=== PATIENT | female | born 1945 | race Caucasian/White ===

== ENCOUNTER 2020-12-18 12:42 | Outpatient (REF) | payer MEDICARE, OTHER, SELFPAY ==
[2020-12-18 13:48] LABS: Blood Urea Nitrogen 14 mg/dL (9-16); Estimated Glomerular Filt Rate > 60
== END 2020-12-18 12:43 | disposition home or self-care (01) ==
LOC: HO.LAB 12:42
PROVIDERS: Psychiatry & Neurology Neurology; PCP Internal Medicine; Visit Provider Internal Medicine
DX: I67.89 Other cerebrovascular disease (principal)
CPT/HCPCS: 36415; 82565; 84520

== ENCOUNTER → 2021-01-22 14:50 | Outpatient (REF) | payer MEDICARE, OTHER, SELFPAY | LOC: HO.SL 14:50 | PROVIDERS: PCP Internal Medicine; Visit Provider Psychiatry & Neurology Neurology | DX: Z13.89 Encounter for screening for other disorder (principal) ==

== ENCOUNTER 2021-02-05 10:10 | Outpatient (REF) | payer MEDICARE, OTHER, SELFPAY ==
[2021-02-05 10:51] LABS: Blood Urea Nitrogen 13 mg/dL (9-16); Estimated Glomerular Filt Rate > 60
== END 2021-02-05 10:11 | disposition home or self-care (01) ==
LOC: HO.LAB 10:10
PROVIDERS: PCP Internal Medicine; Visit Provider Psychiatry & Neurology Neurology
DX: Z01.812 Encounter for preprocedural laboratory examination (principal)
CPT/HCPCS: 36415; 82565; 84520

== ENCOUNTER 2021-02-23 07:32 | Outpatient (REF) | payer MEDICARE, OTHER, SELFPAY ==
--- NOTE | ~2021-02-23 | CT_ITS ---
EXAMINATION: CT ANGIOGRAM NECK WITH CONTRAST CT ANGIOGRAM BRAIN WITH CONTRAST CLINICAL INFORMATION: Cerebral microvascular disease. COMPARISON: None. TECHNIQUE: Test bolus sequences followed by intravenous administration 70 mL of Omnipaque 350. Helical imaging was performed in the axial plane from the thoracic inlet to the skull vertex. Delayed postcontrast imaging of the head was also performed. The data was processed at the certified cytotechnologist workstation for generation of MIP sequences. Angled MIPs and volume rendered reformatted images were also generated at an offline 3D workstation. Stenoses are assessed in accordance with NASCET criteria unless otherwise indicated. This CT examination was performed using dose optimization techniques as appropriate, variously including the following: *Automated exposure control *Adjustment of mA and/or kV according to patient size (this includes techniques or standardized protocols for targeted exams where dose is matched to indication/reason for exam; i.e. extremities or head) *Use of iterative reconstruction technique DLP: 2361 mGy-cm FINDINGS: Head CT: There is no intracranial hemorrhage, large acute infarction, or parenchymal mass lesion. A 9 mm densely calcified lesion along the high left parietal convexity most likely represents a calcified meningioma. Prominent dural ossification is seen along the high right frontal convexity. The ventricles are normal in size and configuration without evidence of hydrocephalus. No abnormal enhancement is seen. The visualized paranasal sinuses and mastoid air cells are clear. There is a prominent lipoma along the left frontotemporal scalp. Neck CTA: Ureter arch is patent. The great vessel origins are patent. The bilateral common carotid arteries are patent. No carotid bifurcation stenosis is seen. Both vertebral arteries are patent without significant stenosis. Head CTA: The intradural vertebral arteries and basilar artery are patent. The bilateral intracranial ICAs, ACAs, and MCAs are patent and demonstrate symmetric collaterals. No aneurysm is seen. Non-vascular findings: The cervical soft tissues are within normal limits. Multilevel degenerative changes are seen within the spine. CT/CT angio head neck IMPRESSION: CT head: No intracranial hemorrhage or large acute infarction. 9 mm densely calcified lesion along the high left parietal convexity most likely represents a small meningioma. CTA neck: No hemodynamically significant stenosis in the major arteries of the neck. CTA head: No large vessel occlusion or significant stenosis within the intracranial circulation.
[2021-02-23] MEDS: iohexoL 350 MG/ML 100 ML INFUS..BTL 70 ML IV (08:35)
== END 2021-02-23 07:33 | disposition home or self-care (01) ==
LOC: HO.CT 07:32
PROVIDERS: PCP Internal Medicine; Visit Provider Psychiatry & Neurology Neurology
DX: I67.89 Other cerebrovascular disease (principal)
CPT/HCPCS: 70496; 70498; Q9967

== ENCOUNTER → 2021-03-01 14:57 | Outpatient (REF) | payer MEDICARE, OTHER, SELFPAY | LOC: HO.SL 14:57 | PROVIDERS: PCP Internal Medicine; Visit Provider Internal Medicine | DX: G47.33 Obstructive sleep apnea (adult) (pediatric) (principal) | CPT/HCPCS: 95806 ==

== ENCOUNTER 2024-09-03 09:31 | Outpatient (REF) | payer MEDICARE, OTHER, SELFPAY ==
--- OUTSIDE RECORDS SUMMARY | 2024-09-03 09:44 | XMS_ITS | Encounter Summary ---
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 Name Role Phone Mayito Fleming MD Primary Care Prov ider Reason for Visit * Reason Onset Date Comments Nurse Triage 08/11/2024 Encounter Details Date Type Department Care Team (Late st Contact Info) Description 08/11/2024 Telephone [facility] [address] [place] [address] Mayito Fleming MD [address] [place] [address] Nurse Triage Social History Tobacco Use Types Packs/Day Years Used Date Smoking Tobacco: Never Smokeless Tobacco: Never Alcohol Use Standard Drinks/Week Comments Never 0 (1 standard drink = 0.6 oz pur e alcohol) Depression Answer Date Recorded Patient Health Questionnaire-9 Score 0 06/29/2024 Patient Health Questionnaire-9 Score 0 06/29/2024 Last PHQ-9: Questionnaire Data Not on file 0 06/29/2024 Housing Stability Answer Date Recorded What is your housing situation today? I have izabel mccoy 06/29/[address] you li ve. Do you have problems with any of the following? None of the above 06/29/2024 Food Insecurity Answer Date Recorded Within the past 12 months, y ou worried that your food would run out before you got money to buy more: Never True 06/29/2024 Within the past 12 months,th e food you bought just didn't last and you didn't have enough money to get more: Never True Transportation Answer Date Recorded In the past 12 months, has l ack of transportation kept you from medical appts, meetings, work or from getting things needed for daily living? No 06/29/2024 Utilities Answer Date Recorded In the past 12 months, has t he electric, gas, oil or water company threatened to shut off services in your home? No 06/29/2024 Depression Answer Date Recorded Patient Health Questionnaire-2 Score 0 06/29/2024 Internet Access Answer Date Recorded Internet Access Q1 Yes 06/29/2024 Internet Access Q2 Not on file 06/29/2024 Comments Unknown Sex and Gender Information Value Date Recorded Sex Assigned at Female 04/15/2024 9:20 AM EST Legal Sex Female 9:18 AM EST Gender Identity Female 04/15/2024 9:20 AM EST Sexual Orientation Straight 04/15/2024 9: 20 AM EST documented as of this encounter Miscellaneous Notes * Telephone Encounter - Marge Hicks RN - 08/11/2024 5:00 PM EDT Triage call Pt reports left leg is very painful below the knee. Pt does ambulate with walker but, continues to have a limp. Pt reports knee has slight swelling today but, denies redness or warmth. Pthas started to take tylenol arthritis pain relief which has been helpful. Advised to try ice or heat to the area to see if either helps to relieve the pain too. Pt agrees. ASK apt with Dr. Packer 08/17/24 @ 345pm. Pt agrees with this disposition and if pain is better before the apt will call to cancel. Pt insurance is verified as active prior to booking. Protocol Used: Leg Pain (Adult) Protocol-Based Disposition: See in Office or Video Visit within 2 Weeks Video visit not offered Positive Triage Question: * Mild pain (e.g., does not interfere with normal activities) and present > 7 days * All higher-acuity triage questions were negative Care Advice Discussed: * Reassurance and Education - Leg Pain * Pain Medicines * Pain Medicines - Extra Notes and Warnings * Reasons To Call Back - Moderate pain (such as limping) lasts more than 3 days - Mild pain lasts more than 7 days - Signs of infection occur (such as spreading redness, warmth, fever) - You become worse * Use a Cold Pack for Pain * Use Heat After 48 Hours for Pain * Telephone Encounter - Arpan Moore - 08/11/2024 4:09 PM EDT Symptom: Leg Pain - Not From Injury Outcome: Schedule an urgent appointment (within 1 hour) or talk to a nurse or provider soon Reason: Trouble walking The caller accepted this outcome. Pt okay guyanese speaking documented in this encounter Plan of Treatment Upcoming Encounters Date Type Department Care Team (Late st Contact Info) Description 09/30/2024 3:45 PM EDT Office Visit [facility] [address] [place] [address] Mayito Fleming MD [address] [place] [address] documented as of this encounter Visit Diagnoses Not on filedocumented in this encounter Additional Health Concerns Assessment Noted Time PHQ-9 Depression Total Score: 0 06/29/19 1:48 PM EST documented as of this encounter Care Teams Hot Dip Plater Relationship Specialty Start Date End Date Mayito Fleming MD [address] [place] [address] PCP - General Internal Medicine 06/29/24 documented as of this encounter
--- OUTSIDE RECORDS SUMMARY | 2024-09-03 09:44 | XMS_ITS | Clinical Summary ---
Author Organization Patient Business Ser [facility] Address [address] [place] [address] Care Team Providers Care Torpedo Specialist Name Role Phone Mayito Fleming Primary Care Provide r Allergies Active Allergy Reactions Criticality Noted Date Comments Shellfish Containing Products Rash High 2022 Jspojbl-Ctd-Fzh Reductase Inhibitors Pain,Muscular Issues High 08/24/2018 Medications inhalat.spacin g dev,large mask spacer Use with inhaler 2 times/day for 30 days. 01/18/20 23 Active polyethylene glycol (MIRALAX) 17 gram packet Take 17 g by mouth 1 (one) time each day. 06/20/19 23 Active acetaminophen (TYLENOL) 500 mg tablet Take 1 tablet (500 mg total) by mouth every 6 (six) hours if needed. 08/04/19 24 Active albuterol HFA (PROAIR HFA ; PROVENTIL HFA ; VENTOLIN HFA) 90 mcg/actuation inhaler Inhale 2 puffs by mouth every 4 (four) hours if needed for shortness of breath or wheezing. 09/22/19 24 Active alclomethasone (ACLOVATE) 0.05 % ointment 04/15/20 23 Active aspirin 81 mg EC tablet Take 1 tablet (81 mg total) by mouth 1 (one) time each day. Active budesonide-for moteroL (SYMBICORT) 160-4.5 mcg/actuation inhaler Inhale 2 puffs by mouth 2 (two) times a day. 09/22/19 24 Active colchicine (COLCRYS) 0.6 mg tablet Take 1 tablet (0.6 mg total) by mouth 2 (two) times a day. 12/27/19 24 Active cyanocobalamin (VITAMIN B-12) 1,000 mcg tablet Take 1 tablet (1,000 mcg total) by mouth 1 (one) time each day. Active diclofenac (VOLTAREN) 1 % topical gel Apply 1 g topically 3 (three) times a day if needed. 08/21/19 24 Active docusate sodium (COLACE) 100 mg capsule Take 1 capsule (100 mg total) by mouth 2 (two) times a day. Active famotidine (PEPCID) 40 mg tablet Take 1 tablet (40 mg total) by mouth 2 (two) times a day. 08/21/19 24 Active fenofibrate (LOFIBRA) 160 mg tablet Take 1 tablet (160 mg total) by mouth 1 (one) time each day. Active Allergy Relief, fexofenadine, 180 mg tablet Take 1 tablet (180 mg total) by mouth 1 (one) time each day. 08/04/19 24 Active Advair HFA 230-21 mcg/actuation inhaler Inhale 1 puff by mouth 2 (two) times a day. Active guaiFENesin (MUCINEX) 600 mg 12 hr tablet Take 1 tablet (600 mg total) by mouth 2 (two) times a day if needed. 08/13/19 24 Active ibuprofen (ADVIL,MOTRIN) 800 mg tablet Take 1 tablet (800 mg total) by mouth every 8 (eight) hours if needed for mild pain, moderate pain, fever - temperature GREATER than 38 C (100.4 F) or headaches. 08/04/19 24 Active metroNIDAZOLE (METROCREAM) 0.75 % cream Apply topically 2 (two) times a day. 02/27/20 24 Active omeprazole (PriLOSEC) [address] capsule Take 1 capsule (40 mg total) by mouth 1 (one) time each day. Active oseltamivir (TAMIFLU) 75 mg capsule Take 1 capsule (75 mg total) by mouth 2 (two) times a day. for 5 days 08/04/19 24 Active pantoprazole (PROTONIX) 40 mg EC tablet Take 1 tablet (40 mg total) by mouth 1 (one) time each day. 06/25/19 24 Active senna 8.6 mg tablet Take 1 tablet (8.6 mg total) by mouth 1 (one) time each day. Active lisinopril (PRINIVIL,ZEST RIL) 40 mg tablet Take 1 tablet (40 mg total) by mouth 1 (one) time each day. 30 each 5 05/11/20 24 025 Active Vitamin D3 50 mcg (2,000 unit) tablet Take 1 tablet (2,000 Units total) by mouth 1 (one) time each day. 90 tablet 1 05/12/19 25 025 Active venlafaxine XR (EFFEXOR-XR) 150 mg 24 hr capsule Take 1 capsule (150 mg total) by mouth 1 (one) time each day with breakfast. 90 capsule 1 06/01/19 25 Active levothyroxine (SYNTHROID, LEVOTHROID) 75 mcg tablet TAKE 1 TABLET BY MOUTH DAILY 30 tablet 1 08/11/19 25 Active levothyroxine (SYNTHROID, LEVOTHROID) 75 mcg tablet TAKE 1 TABLET BY MOUTH DAILY 30 tablet 1 06/01/19 25 025 Discontinued cefdinir (OMNICEF) 300 mg capsule Take 1 capsule (300 mg total) by mouth 2 (two) times a day for 7 days. 13 each 08/25/19 25 025 phenazopyridin e (PYRIDIUM) 200 mg tablet Take 1 tablet (200 mg total) by mouth 3 (three) times a day if needed for bladder spasms (dysuria) for up to 2 days. 5 tablet 08/24/19 25 025 Active Problems Problem Noted Date Diagnosed Date Abdominal pain 03/12/2024 Decreased appetite 03/12/2024 Dysphagia 03/12/2024 Esophageal dysmotility 03/12/2024 Hiatal hernia 03/12/2024 Left upper quadrant pain 03/12/2024 Neck swelling 03/12/2024 Overview (03/12/2024): Right side of neck without any known injury painful to touch Obesity (BMI 30-39.9) 08/22/2022 Chronic constipation 02/15/2021 Overview (03/12/2024): Last Assessment & Plan: Chronic constipation. Patient will be referred to GI for evaluation. Advised MiraLAX daily. High-fiber diet. Plenty of fluids. Calcaneal spur of foot, right 08/31/2020 Plantar fasciitis of right foot 08/31/2020 Right foot pain 08/31/2020 Spinal stenosis of lumbar region 05/17/2020 Atypical ductal hyperplasia of right breast 08/10 Overview (03/12/2024): Lumpectomy DDD (degenerative disc disease), cervical 2018 Depression 08/24/2018 Dupuytren contracture 08/24/2018 Fibromyalgia 08/24/2018 GERD (gastroesophageal reflux disease) 9 Hyperlipidemia 08/24/2018 Overview (03/12/2024): Intolerant of statins - myalgias Last Assessment & Plan: Continue Zetia 10 mg daily. Labs ordered to be done today. We will continue to monitor and adjust treatment as indicated. Patient has been intolerant of statins in the past. Discussed diet and exercise and weight loss. Hypertension 08/24/2018 Overview (03/12/2024): Last Assessment & Plan: Continue lisinopril 10 mg daily. Labs ordered to be done today. Will continue to monitor blood pressures in office at next visit. Discussed dietary strategies to help control his blood pressure. Encouraged low-fat, lean protein, high-fiber, low-cholesterol, low carbohydrate diet. Regular exercise and weight loss also encouraged to help with blood pressure control. Recheck in 3 months. Hypothyroidism 08/24/2018 Overview (03/12/2024): Last Assessment & Plan: Patient to get TSH today as overdue for follow-up on thyroid testing. Her last TSH on October 13, 2020 was 0.27. Patient had levothyroxine dose decreased to 75 mcg daily and was supposed to repeat testing in 2 months. She still is due for this. We will get that today. And medication adjustment can be based on test results. We will continue to monitor. IBS (irritable bowel syndrome) 08/24/2018 Kidney stone on left side 08/24/2018 Macular drusen, right 08/24/2018 Osteoarthritis of multiple joints 08/24/2018 Overview (03/12/2024): Knees, LS spine,l HIP. Dr Saleem Tubular adenoma 08/24/2018 Vitamin D deficiency 08/24/2018 Encounters Date Type Department Care Team Description 08/23/2024 9:23 PM EDT - 08/23/2024 11:02 PM EDT Emergency [facility] [address] [place] [address] Acute cystitis without hematuria (Primary Dx) Discharge Disposition: Home or Self Care from Last 3 Months Immunizations Name Administration Dates Next Due Influenza trivalent, 0.5mL ( Fluad) 65yo and older 02/27/2024,02/15/2021,04/14/2017 Pfizer SARS-CoV-2 COVID-19, mRNA, LNP-S, preservative free 03/11/2021,07/18/2020,06/27/2020 Pneumococcal conjugate 13 va lent (Prevnar 13, PCV13) 2mo and older 02/24/2015 Pneumococcal polysaccharide 23 valent (Pneumovax 23) 2yo and older 11/14/2009 Tdap Tetanus diptheria acell ular pertussis (Boostrix; Adacel) 7yo and older 2007 Zoster Live 03/14/2015 Surgical History Surgery Date Site/Laterality Comments BACK SURGERY PROCEDURE: HISTORICAL BACK SURGERY; COMMENT: Diskectomy L5 S1 Dr Cage TONSILLECTOMY PROCEDURE: HISTORICAL TONSILLECTOMY OTHER SURGICAL HISTORY 05/2017 PROCEDURE: HISTORY OTHER; COMMENT: Uterine polypectomy COLONOSCOPY 11/13/2006 PROCEDURE: HISTORICAL COLONOSCOPY ESOPHAGOGASTRODUODENOSCOPY 11/2006 PROCEDURE: NC ESOPHAGOGASTRODUODENOSCOPY TRANSORAL DIAGNOSTIC COLONOSCOPY 10/17/2017 PROCEDURE: HISTORICAL COLONOSCOPY BREAST BIOPSY PROCEDURE: BX BREAST; PERC NEEDLE CORE W/IMAG GUID COLONOSCOPY PROCEDURE: HISTORICAL COLONOSCOPY; COMMENT: Reports performing at [facility] 3 to 4 years ago Medical History Medical History Date Comments Atypical ductal hyperplasia of right breast 08/24/2018 DX:Atypical ductal hyperplas ia of right breast; COMMENT: Lumpectomy DDD (degenerative disc disea se), cervical 08/24/2018 DX:DDD (degenerative disc di sease), cervical Depression 08/24/2018 DX:Depression Dermatitis 08/24/2018 DX:Dermatitis Dupuytren contracture 08/24/2018 DX:Dupuytr en contracture Fibromyalgia 08/24/2018 DX:Fibromyalgia GERD (gastroesophageal reflux disease) 9 DX:GERD (gastroesophageal reflux disease) History of herpes zoster 08/24/2018 DX:Hist ory of herpes zoster History of syncope 08/24/2018 DX:History of syncope Hyperlipidemia 08/24/2018 DX:Hyperlipidemi a; COMMENT: Intolerant of statins - myalgias Hypertension 08/24/2018 DX:Hypertension Hypothyroidism 08/24/2018 DX:Hypothyroidis m IBS (irritable bowel syndrome) 08/24/2018 D X:IBS (irritable bowel syndrome) Kidney stone on left side 08/24/2018 DX:Kid kristopher stone on left side Macular drusen, right 08/24/2018 DX:Macular drusen, right Osteoarthritis of multiple joints 08/24/2018 DX:Osteoarthritis of multiple joints; COMMENT: Knees, LS spine,l HIP. Dr Saleem Tubular adenoma 08/24/2018 DX:Tubular adeno ma Vitamin D deficiency 08/24/2018 DX:Vitamin D deficiency TIA (transient ischemic attack) 08/30/2019 DX:TIA (transient ischemic attack); COMMENT: [facility], transient L sided numbness Dysphagia DX:Dysphagia Decreased appetite DX:Decreased appetite Cough DX:Cough Neck swelling DX:Neck swelling ; COMMENT: Right side of neck without any known injury painful to touch Chronic constipation DX:Chronic constipation Left upper quadrant pain DX:Left upper quadrant pain Esophageal dysmotility DX:Esopha geal dysmotility Hiatal hernia DX:Hiatal hernia Abdominal pain DX:Abdominal clarisa n GERD (gastroesophageal reflux disease) DX:GERD (gastroesophageal reflux disease) Rectal bleeding DX:Rectal bleedi ng Tubular adenoma of colon DX:Tubu lar adenoma of colon Constipation DX:Constipation Rectal bleeding DX:Rectal bleedi ng Diverticulosis DX:Diverticulosi s Hemorrhoids DX:Hemorrhoids Family History Medical History Relation Name Comments Ovarian cancer Aunt Maternal age 35-40 Other: PTSD Brother Diabetes Father Hypertension.Go ut , OA. age 94 Diabetes Mother Hypertension. S kin Cancer, Gout Other: Fibromyalgia Sister Prostate cancer Uncle Maternal Breast cancer Neg Hx Relation Name Status Comments Aunt Maternal Brother Father Mother Sister Uncle Maternal Social History Tobacco Use Types Packs/Day Years Used Date Smoking Tobacco: Never Smokeless Tobacco: Never Tobacco Cessation:Counseling Given: Not Answered Alcohol Use Standard Drinks/Week Comments No 0 (1 standard drink = 0.6 oz pur e alcohol) Comments Unknown Sex and Gender Information Value Date Recorded Sex Assigned at Female 08/23/2024 9:37 PM EDT Legal Sex Female 4:52 PM EST Gender Identity Female 08/23/2024 9:37 PM EDT Sexual Orientation Straight 08/23/2024 9: 37 PM EDT Obstetrics History Last Filed Vital Signs Vital Sign Reading Time Taken Comments Blood Pressure 138/71 08/23/2024 7:43 PM EDT Pulse 74 08/23/2024 7:43 PM EDT Temperature 36.4 ??C (97.5 ??F) 08/23/2024 7:43 PM ED T Respiratory Rate 18 08/23/2024 7:43 PM EDT Oxygen Saturation 98% 08/23/2024 7:43 PM EDT Inhaled Oxygen Concentration - - Weight 77.6 kg (171 lb) 08/23/2024 7:43 PM EDT Height 157.5 cm (5' 2 ) 08/23/2024 7:43 PM EDT Body Mass Index 31.28 08/23/2024 7:43 PM EDT Plan of Treatment Upcoming Encounters Date Type Department Care Team (Late st Contact Info) Description 11/08/2024 11:15 AM EDT Office Visit Internal Medicine [facility] [address] [phone] Beatrice Albert NP [address] [address] 02/03/2025 1:15 PM EDT Office Visit Pulmonolgy - [place] [address] [phone] Kiki Durant MD [address] [address] Health Maintenance Due Date Last Done Comments DTaP,Tdap,and Td Vaccines (2 - Td or Tdap) 09/09/2017 2007 RSV Immunization Adult Patients (1 - 1-dose 75+ series) 09/09/2018 Medicare Annual Wellness Visit 05/09/2020 Social Influencers of Health Screening 05/09/2020 Zoster Vaccines (3 of 3) 04/22/2023 023, 03/14/2015, 02/15/2013 COVID-19 Vaccine ( season) 2024 03/28/2022, 03/11/2021, 02/21/2021, Additional history exists Breast Cancer Screening 03/12/2024 12/17/2019, 10/02 Falls Risk Assessment 2024 09/11/2023, 024 Depression Screening 06/29/2025 06/29/2024, 09/30/2023, 09/30/2023 Hypertension/CHF/CAD Annual BMP Blood Test 08/23/2025 08/23/2024, 09/30/2023, 09/30/2023 Cholesterol Screening (Lipid Panel) 09/29/2028 09/30/2023, 09/30/2023 Osteoporosis Screening (Bone Density Screening) 02/12/2032 02/11/2022 Pneumococcal Vaccine: 50+ Years Completed 02/24/2015, 11/14/2009 Influenza Vaccine Completed 02/27/2024, , 02/15/2021, Additional history exists HIB Vaccines Aged Out No longer eligi ble based on patient's age to complete this topic HPV Vaccines Aged Out No longer eligi ble based on patient's age to complete this topic Hepatitis A Vaccines Aged Out No long er eligible based on patient's age to complete this topic Hepatitis B Vaccines Aged Out No long er eligible based on patient's age to complete this topic IPV Vaccines Aged Out No longer eligi ble based on patient's age to complete this topic MMR Vaccines Aged Out No longer eligi ble based on patient's age to complete this topic Meningococcal ACWY Vaccine Aged Out N o longer eligible based on patient's age to complete this topic Meningococcal B Vaccine Aged Out No l onger eligible based on patient's age to complete this topic RSV Immunization Patients Under 20 months Aged Out No longer eligible based on patient's age to complete this topic Varicella Vaccines Aged Out No longer eligible based on patient's age to complete this topic Procedures Procedure Name Priority Date/Time Associated Diagnosis Comments HINOJOSA URINE CULTURE TUBE STAT 08/23/2024 7:58 PM EDT URINALYSIS WITH REFLEX MICROSCOPIC AND CULTURE STAT 08/23/2024 7:58 PM EDT URINALYSIS WITH REFLEX MICROSCOPIC AND CULTURE STAT 08/23/2024 7:58 PM EDT CULTURE URINE STAT 08/23/2024 7:58 PM EDT CBC WITH AUTO DIFFERENTIAL STAT 08/23/2024 7:50 PM EDT BASIC METABOLIC PANEL STAT 08/23/2024 7:50 PM EDT CBC AND DIFFERENTIAL STAT 08/23/2024 7:50 PM EDT DEPRESSION SCREENING Routine 09/30/2023 LIPID PANEL Routine 09/30/2023 FALLS RISK ASSESSMENT Routine 09/11/2023 DXA BONE DENSITY STUDY 1+ SITS AXIAL SKEL Routine 02/11/2022 3:45 PM EDT Encounter for general adult medical examination without abnormal findings NAVID SCREENING DIGITAL Routine 12/17/2019 4:57 PM EDT Encounter for screening mammogram for malignant neoplasm of breast from Last 3 Months or Most Recently Relevant to Health Maintenance Results * (ABNORMAL) Urinalysis with reflex microscopic and culture (08/23/2024 7:58 PM EDT) Specific [place] Urine 1.023 1.003 - 1.030 LAB URINALYSIS - AUTOMATED METHOD 08/23/2024 8:33 PM EDT [facility] pH, Urine 6.5 5.0 - 8.0 pH LAB URINALYSIS - AUTOMATED METHOD 08/23/2024 8:33 PM EDT [facility] Leukocytes, Urine Large(A) Negative LAB URINALYSIS - AUTOMATED METHOD 08/23/2024 8:33 PM [facility] Nitrite, Urine Negative Negative LAB URINALYSIS - AUTOMATED METHOD 08/23/2024 8:33 PM [facility] Protein, Urine 100(A) <=Trace mg/dL LAB URINALYSIS - AUTOMATED METHOD 08/23/2024 8:33 PM [facility] Glucose, Urine Negative Negative mg/dL LAB URINALYSIS - AUTOMATED METHOD 08/23/2024 8:33 PM [facility] Ketones, Urine Negative Negative mg/dL LAB URINALYSIS - AUTOMATED METHOD 08/23/2024 8:33 PM [facility] Urobilinogen, Urine 1.0 0.2 - 1.0 mg/dL LAB URINALYSIS - AUTOMATED METHOD 08/23/2024 8:33 PM [facility] Bilirubin, Urine Negative Negative LAB URINALYSIS - AUTOMATED METHOD 08/23/2024 8:33 PM [facility] Blood, Urine Small(A) Negative LAB URINALYSIS - AUTOMATED METHOD 08/23/2024 8:33 PM [facility] RBC, Urine 30.9(H) 0 - 4 /HPF LAB URINALYSIS - AUTOMATED METHOD 08/23/2024 8:33 PM [facility] WBC, Urine 379.6(H) 0 - 4 /HPF LAB URINALYSIS - AUTOMATED METHOD 08/23/2024 8:33 PM [facility] Squamous Epithelial, Urine 60 0 - 60 /LPF LAB URINALYSIS - AUTOMATED METHOD 08/23/2024 8:33 PM [facility] Bacteria, Urine Negative Negative /HPF LAB URINALYSIS - AUTOMATED METHOD 08/23/2024 8:33 PM [facility] Hyaline Casts, Urine 2.4 0 - 3 /LPF LAB URINALYSIS - AUTOMATED METHOD 08/23/2024 8:33 PM [facility] Urine Urine specimen obtained by clean catch procedure / Unknown Non-blood Collection / Unknown 08/23/2024 7:58 PM EDT 08/23/2024 8:14 PM EDT Callum Ray MD LAB URINE ORDERABLES Final Resu lt Performing Organization Address [facility]/ZIP Co de Phone Number [facility] [address] [place] [address], [place] [phone] * Hinojosa urine culture tube (08/23/2024 7:58 PM EDT) Extra Tube Hold for add-ons. 08/23/2024 10:03 PM EDT [facility] Comment:Auto resulted. Urine Urine specimen obtained by clean catch procedure / Unknown Non-blood Collection / Unknown 08/23/2024 7:58 PM EDT 08/23/2024 8:14 PM EDT Callum Ray MD LAB URINE ORDERABLES Final Resu lt Performing Organization Address [facility]/ZIP Co de Phone Number [facility] [address] [place] [address], [place] [phone] * (ABNORMAL) Culture urine (08/23/2024 7:58 PM EDT) Culture, Urine 50,000-100,000 CFU/mL Klebsiella pneumoniae ssp pneumoniae(A) TEDDY 08/25/2024 8:11 AM EDT [facility] Comment: This is an edited result. Previous organism was Gram negative bacilli on 08/24/2024 at 1441 EDT. Urine Urine specimen obtained by clean catch procedure / Unknown Non-blood Collection / Unknown 08/23/2024 7:58 PM EDT 08/23/2024 8:33 PM EDT Narrative [facility] - 08/25/2024 8:11 AM EDT Additional colony types present in insignificant amounts. Organism Antibiotic Method Susceptibility Klebsiella pneumoniae ssp pneumoniae Amoxicillin/Clavulanate TEDDY <=2 ug/ml: Susceptible Klebsiella pneumoniae ssp pneumoniae Ampicillin/Sulbactam TEDDY <=2 ug/ml: Susceptible Klebsiella pneumoniae ssp pneumoniae Piperacillin/Tazobactam TEDDY <=4 ug/ml: Susceptible Klebsiella pneumoniae ssp pneumoniae Cefazolin (Urine) TEDDY 2 ug/ml: Susceptible Klebsiella pneumoniae ssp pneumoniae Cefoxitin TEDDY <=4 ug/ml: Susceptible Klebsiella pneumoniae ssp pneumoniae Ceftazidime TEDDY <=0.5 ug/ml: Susceptible Klebsiella pneumoniae ssp pneumoniae Ceftriaxone TEDDY <=0.25 ug/ml: Susceptible Klebsiella pneumoniae ssp pneumoniae Cefepime TEDDY <=0.12 ug/ml: Susceptible Klebsiella pneumoniae ssp pneumoniae Meropenem TEDDY <=0.25 ug/ml: Susceptible Klebsiella pneumoniae ssp pneumoniae Amikacin TEDDY <=1 ug/ml: Susceptible Klebsiella pneumoniae ssp pneumoniae Gentamicin TEDDY <=1 ug/ml: Susceptible Klebsiella pneumoniae ssp pneumoniae Ciprofloxacin TEDDY <=0.06 ug/ml: Susceptible Klebsiella pneumoniae ssp pneumoniae Levofloxacin TEDDY <=0.12 ug/ml: Susceptible Klebsiella pneumoniae ssp pneumoniae Nitrofurantoin TEDDY 64 ug/ml: Intermediate Klebsiella pneumoniae ssp pneumoniae Trimethoprim/Sulfamethoxazo le TEDDY <=20 ug/ml: Susceptible Callum Ray MD LAB MICROBIOLOGY - GENERAL [facility] Final Result [facility] [address] [place] [address], * CBC auto differential (08/23/2024 7:50 PM EDT) WBC 6.8 4.8 - 10.8 K/mcL LAB HEMETOLOGY METHOD 08/23/2024 8:19 PM EDT [facility] RBC 3.90 3.80 - 4.80 M/mcL LAB HEMETOLOGY METHOD 08/23/2024 8:19 PM EDT [facility] Hemoglobin 11.9 11.5 - 16.0 g/dL LAB HEMETOLOGY METHOD 08/23/2024 8:19 PM EDT [facility] Hematocrit 37.1 35.0 - 47.0 % LAB HEMETOLOGY METHOD 08/23/2024 8:19 PM EDT [facility] MCV 95.9 79.0 - 98.0 FL LAB HEMETOLOGY METHOD 08/23/2024 8:19 PM EDT [facility] MCH 30.7 27.0 - 32.0 pcg LAB HEMETOLOGY METHOD 08/23/2024 8:19 PM EDT [facility] MCHC 32.1 32.0 - 37.0 g/dL LAB HEMETOLOGY METHOD [facility] RDW 12.9 11.0 - 15.0 % LAB HEMETOLOGY METHOD 08/23/2024 8:19 PM [facility] Platelets 205 130 - 400 K/mcL LAB HEMETOLOGY METHOD 08/23/2024 8:19 PM [facility] MPV 10.4 7.0 - 11.0 FL LAB HEMETOLOGY METHOD 08/23/2024 8:19 PM [facility] NRBC 0.0 <1.0 % LAB HEMETOLOGY METHOD 08/23/2024 8:19 PM [facility] NRBC Absolute 0.00 <0.10 K/mcL LAB HEMETOLOGY METHOD 08/23/2024 8:19 PM [facility] Neutrophils Relative 56.4 % LAB HEMETOLOGY METHOD 08/23/2024 8:19 PM [facility] Lymphocytes Relative 27.5 % LAB HEMETOLOGY METHOD [facility]24 [facility] Monocytes Relative 12.9 % LAB HEMETOLOGY METHOD 08/23/2024 8:19 PM [facility] Eosinophils Relative 2.6 % LAB HEMETOLOGY METHOD 08/23/2024 8:19 PM [facility] Basophils Relative 0.3 % LAB HEMETOLOGY METHOD 08/23/2024 8:19 PM EDT [facility] Immature Granulocytes Relative 0.3 % LAB HEMETOLOGY METHOD 08/23/2024 8:19 PM EDT [facility] Neutrophils Absolute 3.83 1.50 - 7.00 K/mcL LAB HEMETOLOGY METHOD 08/23/2024 8:19 PM EDT [facility] Lymphocytes Absolute 1.87 1.00 - 5.00 K/mcL LAB HEMETOLOGY METHOD 08/23/2024 8:19 PM EDT [facility] Monocytes Absolute 0.88 0.20 - 1.00 K/mcL LAB HEMETOLOGY METHOD 08/23/2024 8:19 PM EDT [facility] Eosinophils Absolute 0.18 0.00 - 0.50 K/mcL LAB HEMETOLOGY METHOD 08/23/2024 8:19 PM EDT [facility] Basophils Absolute 0.02 0.00 - 0.20 K/mcL LAB HEMETOLOGY METHOD 08/23/2024 8:19 PM EDT [facility] Immature Granulocytes Absolute 0.02 0.00 - 0.03 K/mcL LAB HEMETOLOGY METHOD 08/23/2024 8:19 PM EDT [facility] Blood Venous blood specimen / Unknown Venipuncture / Unknown 08/23/2024 7:50 PM EDT 08/23/2024 8:15 PM EDT us Callum Ray MD LAB BLOOD ORDERABLES Final Resu lt [facility] [address] [place] [address], * Basic metabolic panel (08/23/2024 7:50 PM EDT) Pathologist [facility] Sodium 141 133 - 145 mmol/L LAB CHEMISTRY METHOD 08/23/2024 8:39 PM [facility] Potassium 3.6 3.5 - 5.5 mmol/L LAB CHEMISTRY METHOD 08/23/2024 8:39 PM [facility] Chloride 107 96 - 110 mmol/L LAB CHEMISTRY METHOD 08/23/2024 8:39 PM [facility] CO2 30 21 - 32 mmol/L LAB CHEMISTRY METHOD 08/23/2024 8:39 PM [facility] Anion Gap 4 3 - 11 LAB CHEMISTRY METHOD 08/23/2024 8:39 PM [facility] Glucose 91 70 - 100 mg/dL LAB CHEMISTRY METHOD 08/23/2024 8:39 PM [facility] BUN 15 5 - 25 mg/dL LAB CHEMISTRY METHOD 08/23/2024 8:39 PM [facility] Creatinine 0.71 0.50 - 1.10 mg/dL LAB CHEMISTRY METHOD 08/23/2024 8:39 PM [facility] eGFR 86 >=60 mL/min/1. 73m2 LAB CHEMISTRY METHOD 08/23/2024 8:39 PM [facility] Comment:Calculation based on the??Chronic Kidney Disease Epidemiology Collaboration (CKD-EPI) equation refit??without adjustment for race. BUN/Creatinine Ratio 21.1 LAB CHEMISTRY METHOD 08/23/2024 8:39 PM [facility] Calcium 9.3 8.5 - 10.5 mg/dL LAB CHEMISTRY METHOD 08/23/2024 8:39 PM [facility] Blood Venous blood specimen / Unknown Venipuncture / Unknown 08/23/2024 7:50 PM EDT 08/23/2024 8:15 PM EDT us Callum Ray MD LAB BLOOD ORDERABLES Final Resu lt [facility] [address] [place] [address], * Depression Screening (09/30/2023) Depression Screening abstracted Historical Provider MD HEALTH MAINTENANCE Final Result * (ABNORMAL) Lipid panel (09/30/2023) LDL/HDL Ratio 5(A) 0 - 4 Triglycerides 256(A) 0 - 150 mg/dL Cholesterol 290(A) 0 - 200 mg/dL HDL 56 >=40 mg/dL LDL Cholesterol 183(A) 0 - 100 mg/dL Blood Venous blood specimen / Unknown [facility] Provider MD LAB BLOOD ORDERABLES Gayle l Result * Falls Risk Assessment (09/11/2023) Falls Risk Assessment abstracted Historical Provider [place] HEALTH MAINTENANCE Final Result * DXA BONE DENSITY STUDY 1+ SITS AXIAL SKEL (02/11/2022 3:45 PM EDT) Anatomical Region Laterality Modality Bone Densitometr y 08/16/2021 2:32 PM EDT Narrative 02/11/2022 5:24 PM EDT BONE DENSITY SCAN (DEXA) ? FINDINGS: Lumbar Spine T-score is 1.6. ?? (SD relative to 20-29 y/o adult) Z-score is 4.2. ??(SD relative to age matched peers) This is considered normal by WHO criteria. Left Hip T-score is 0.2. Z-score is 2.2. This is considered normal by WHO criteria. Comparison: None. IMPRESSION: IMPRESSION: Normal bone mineral density by WHO criteria. The [facility] Department of Internal Medicine recommends using National Osteoporosis Foundation (NOF) guidelines in treatment decisions related to osteoporosis. NOF guidelines suggest considering treatment for postmenopausal women and men aged 50 or older presenting with the following: History of hip or vertebral fracture. T-score = -2.5 (DXA) at the femoral neck, total hip, or spine, after appropriate evaluation to exclude secondary causes. Low bone mass (T-score between -1.0 and -2.5 at the femoral neck or spine) AND a 10-year probability of a hip fracture = 3% OR a 10-year probability of a major osteoporosis-related fracture = 20% based on the [place]-adapted WHO algorithm Please note that all treatment decisions require clinical judgment and consideration of individual patient factors, including patient preferences, co-morbidities, previous drug use, risk factors not captured in the FRAX model (e.g., frailty, falls, vitamin D deficiency, increased bone turnover, interval significant decline in bone density) and possible under- or over-estimation of fracture risk by FRAX. Optional alternative screening schedule based on magdalena Pepe., [facility] May 30, 2011 for patients with osteopenia (based on hip BMD T-score) is as follows: * ??advanced osteopenia (T scores -2.00 to -2.49), BMD testing every year * ??moderate osteopenia (T scores -1.50 to -1.99), BMD testing every 5 years mild osteopenia or normal BMD (T scores -1.50 and higher), BMD testing every 15 years Procedure Note Tiff Bhardwaj MD - 04/30/2022 BONE DENSITY SCAN (DEXA) FINDINGS: Lumbar Spine T-score is 1.6. (SD relative to 20-29 y/o adult) Z-score is 4.2. (SD relative to age matched peers) This is considered normal by WHO criteria. Left Hip T-score is 0.2. Z-score is 2.2. This is considered normal by WHO criteria. Comparison: None. IMPRESSION: IMPRESSION: Normal bone mineral density by WHO criteria. The [facility] Department of Internal Medicine recommendsusing National Osteoporosis Foundation (NOF) guidelines in treatment decisions related toosteoporosis. NOF guidelines suggest considering treatment for postmenopausal women and menaged 50 or older presenting with the following: History of hip or vertebral fracture. T-score = -2.5 (DXA) at the femoral neck, total hip, or spine, afterappropriate evaluation to exclude secondary causes. Low bone mass (T-score between -1.0 and -2.5 at the femoral neck or spine)AND a 10-year probability of a hip fracture = 3% OR a 10-year probability of a majorosteoporosis-related fracture = 20% based on the [place]-adapted WHO algorithm Please note that all treatment decisions require clinical judgment andconsideration of individual patient factors, including patient preferences, co- morbidities,previous drug use, risk factors not captured in the FRAX model (e.g., frailty, falls, vitaminD deficiency, increased bone turnover, interval significant decline in bone density) andpossible under- or over-estimation of fracture risk by FRAX. Optional alternative screening schedule based on magdalena Pepe., NEJMJanuary 2011 for patients with osteopenia (based on hip BMD T-score) is as follows: * advanced osteopenia (T scores -2.00 to -2.49), BMD testing every year * moderate osteopenia (T scores -1.50 to -1.99), BMD testing every 5years mild osteopenia or normal BMD (T scores -1.50 and higher), BMD testingevery 15 years us Michelle NYE [place] DXA PROCEDURES Final Resu lt * NAVID SCREENING DIGITAL (12/17/2019 4:57 PM EDT) Anatomical Region Laterality Modality Mammography 12/17/2019 1:27 PM EDT Narrative 12/17/2019 4:57 PM EDT [facility] Diagnostic Imaging Department [address] [place] [id number] Patient: ??SOMMER,NATALIIA E ?/Age/Sex: 1945 - 74 - F Unit#: ??[id number] ? Location/Status: ??SPDIMAM/REG CLI ? Mnemonic/Ordering Site: ??DIGSC/SPMAM Ordering Physician: ??RAMSEY REDDY MD Navid Screening Digital - 12/17/19 - 1355 INDICATION: SCREENING COMPARISON: [facility] mammograms dating back to January 17, 2016 TECHNIQUE: CC and MLO views of the breasts were obtained, using full field digital mammography with 3D tomosynthesis views in the MLO projection. Computer aided detection with the Amiare 7.2-H was employed. FINDINGS: The breasts contain scattered fibroglandular tissues. ??Coarsening dystrophic calcification associated with oil cyst within the central right breast medial to the nipple line. No suspicious masses, suspicious microcalcifications, or areas of architectural distortion are identified. ??There are no secondary signs of breast malignancy. Compared to the prior exam, no adverse interval change. IMPRESSION: ??No specific mammographic evidence of breast malignancy. Lack of an imaging correlate should not deter or delay biopsy of a clinically significant palpable finding. BI-RADS ??- Category 2 - Benign finding 3342F, 7025F Annual screening mammography is recommended. Patient entered into a reminder system with a target date for the next mammogram. (G0202 / [id number]) , ??[id number] Dictating Physician: ??JUAQUIN KISER MD Electronically Signed by: ??JUAQUIN KISER MD Dic Date/Time: ??12/17/191651 Sign date/Time: ??12/17/19 1657 Procedure Note Juaquin Kiser MD - 05/01/2022 [facility] Diagnostic Imaging Department [address] [place] [address] [id number] Patient: NATALIIA SOMMER Jass /Age/Sex: 1945 - 74 - F Unit#: [id number] Location/Status: SPDIMAM/REG CLI Mnemonic/Ordering Site: [facility] Ordering Physician: RAMSEY REDDY MD Navid Screening Digital - 12/17/19 - 1355 INDICATION: SCREENING COMPARISON: [facility] mammograms dating back to January TECHNIQUE: CC and MLO views of the breasts were obtained, using full field digital mammography with 3D tomosynthesis views in the MLO projection. Computer aided detection with the Amiare 7.2-H was employed. FINDINGS: The breasts contain scattered fibroglandular tissues. Coarseningdystrophic calcification associated with oil cyst within the central right breastmedial to the nipple line. No suspicious masses, suspicious microcalcifications, or areas ofarchitectural distortion are identified. There are no secondary signs of breastmalignancy. Compared to the prior exam, no adverse interval change. IMPRESSION: No specific mammographic evidence of breast malignancy. Lack of an imaging correlate should not deter or delay biopsy of aclinically significant palpable finding. BI-RADS - Category 2 - Benign finding 3342F, 7025F Annual screening mammography is recommended. Patient entered into a reminder system with a target date for the next mammogram. 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
--- OUTSIDE RECORDS SUMMARY | 2024-09-03 09:44 | XMS_ITS | Clinical Summary ---
Author Organization [employer] Address [address] [place] [address] Care Team Providers Care Administrative Assistant Receptionist Name Role Phone Mayito Fleming MD Primary Care Prov ider Allergies Active Allergy Reactions Criticality Noted Date Comments Shellfish-Derived Products Rash Low 5 Statins Muscle Pain 06/29/2024 Medications cyanocobalamin (Vitamin B-12) 1000 MCG tablet Take 1,000 mcg by mouth Once per day. Active cholecalcifero l (Vitamin D-3) 50 MCG (1999) tablet Take 1 tablet by mouth Once per day. 05/12/19 25 Active famotidine (Pepcid) 40 MG tablet Take 40 mg by mouth 2 times daily. Active colchicine 0.6 MG tablet Take 0.6 mg by mouth 2 times daily. 12/27/19 24 Active acetaminophen (Tylenol) 500 MG tablet Take 1 tablet by mouth every 6 (six) hours if needed. 08/04/19 24 Active lisinopril 30 MG tablet Take 1 tablet by mouth Once per day. 03/16/20 24 Active Docusate Sodium (DSS) 100 MG capsule Take 1 capsule by mouth 2 times daily. Active Senna-Time 8.6 MG tablet Take 1 tablet by mouth Once per day. Active Advair HFA 230-21 MCG/ACT inhaler Inhale 1 puff 2 times daily. Active albuterol 108 (90 Base) MCG/ACT inhaler Inhale 1 puff every 4 (four) hours if needed for wheezing. 09/22/19 24 Active venlafaxine XR (Effexor XR) 37.5 MG 24 hr tablet Take 1 tablet (37.5 mg) by mouth with breakfast. Do not crush, chew, or split. 30 tablet 1 06/29/19 25 Active venlafaxine (Effexor) 37.5 MG tablet Take 1 tablet (37.5 mg) by mouth Once per day. 30 tablet 2 07/02/19 25 025 Active levothyroxine (Synthroid, Levoxyl) 75 MCG tabletIndicati ons:Acute cough Take 1 tablet (75 mcg) by mouth Once per day. 90 tablet 3 08/10/19 25 Active magnesium 30 MG tabletIndicati ons:Cramps of left lower extremity Take 1 tablet (30 mg) by mouth 2 times daily. 60 tablet 11 08/18/19 25 026 Active Diclofenac Sodium (Voltaren Arthritis Pain) 1 % gelIndications :Cramps of left lower extremity To use up to 4 times a day to the affected area. 100 g 1 08/18/19 25 Active levothyroxine (Synthroid, Levoxyl) 75 MCG tablet Take 1 tablet by mouth Once per day. 06/01/19 25 025 Discontinued(Re order (will not trigger notification to Pharmacy)) benzonatate (Tessalon Perles) 100 MG capsuleIndicat ions:Acute cough Take 1 capsule (100 mg) by mouth if needed in the morning, at noon, and at bedtime for cough for up to 7 days. Do not crush or chew. 20 capsule 08/10/19 25 025 amoxicillin (Amoxil) 500 MG capsuleIndicat ions:Acute cough Take 1 capsule (500 mg) by mouth every 12 (twelve) hours for 10 days. 20 capsule 08/10/19 25 025 Active Problems Problem Noted Date Diagnosed Date Primary hypertension 07/02/2024 Assessment & Plan (07/02/2024 8:19 AM EST): On lisinopril, told to keep a bp log, keep low sodium diet, follow up in 1 month Acquired hypothyroidism 07/02/2024 Assessment & Plan (07/02/2024 8:20 AM EST): On levothyroxine, will follow up in office for examination and chemical analysis Encounter for medical examination to establish c are 06/29/2024 Assessment & Plan (07/02/2024 8:18 AM EST): Last pcp visit April 2024 at [facility] ER: May 2023 due to pneumonia, Hospitalization: May due to pneumonia Pmhx: OA, HTN, Hypothyroidism, vitamin d def, vitamin b12 def, cholesterol, gerd Pshx: tonsillectomy 1974, lumbar spine surgery 2005 All: seafood Meds: as above Encounters Date Type Department Care Team Description 09/03/2024 8:30 AM EDT Office Visit [facility] [address] [place] [address] Mayito Fleming MD Primary hypertension (Primary Dx); Acquired hypothyroidism; Frequency of urination 09/03/2024 Travel 08/24/[address] [address] Mayito Fleming MD ER Follow-up 08/17/2024 3:45 PM EDT Office Visit [facility] [address] [place] [address] Claudy Packer MD Cramps of left lower extremity (Primary Dx); Pain of left calf 08/17/2024 Travel 08/12/[address] [address] Mayito Fleming MD Medication Question 08/11/[address] [address] Mayito Fleming MD Nurse Triage 08/09/2024 3:00 PM EDT Office Visit [facility] [address] [place] [address] Claudy Packer MD Acute cough (Primary Dx) 08/09/2024 Travel 08/09/[address] [address] Mayito Fleming MD ER Follow-up 06/29/2024 1:45 PM EST Telemedicine [facility] [address] [place] [address] Mayito Fleming MD Encounter for medical examination to establish care (Primary Dx); Primary hypertension; Acquired hypothyroidism 06/29/2024 Telephone [facility] [address] [place] [address] Mayito Fleming MD Medication Question 06/29/2024 Travel 06/09/2024 Telephone [facility] [address] [place] [address] Rommel Hicks MD New pt appt from Last 3 Months Family History Medical History Relation Name Comments Colon cancer Father Diabetes Father Emphysema Father Hypertension Father Heart disease Mother Skin cancer Mother Relation Name Status Comments Father Mother Social History Tobacco Use Types Packs/Day Years Used Date Smoking Tobacco: Never Smokeless Tobacco: Never Tobacco Cessation:Counseling Given: Not Answered Alcohol Use Standard Drinks/Week Comments Never 0 (1 standard drink = 0.6 oz pur e alcohol) Depression Answer Date Recorded Patient Health Questionnaire-9 Score 0 06/29/2024 Patient Health Questionnaire-9 Score 0 06/29/2024 Last PHQ-9: Questionnaire Data Not on file 0 06/29/2024 Housing Stability Answer Date Recorded What is your housing situation today? I have izabel darius 06/29/[address] you li [...] Orientation Straight 04/15/2024 9: 20 AM EST Last Filed Vital Signs Vital Sign Reading Time Taken Comments Blood Pressure 144/87 09/03/2024 9:03 AM EDT Pulse 68 09/03/2024 9:03 AM EDT Temperature 37.1 ??C (98.7 ??F) 09/03/2024 9:03 AM ED T Respiratory Rate 16 09/03/2024 9:03 AM EDT Oxygen Saturation 99% 08/17/2024 4:07 PM EDT Inhaled Oxygen Concentration - - Weight 77.4 kg (170 lb 9.6 oz) 09/03/2024 9:03 A M EDT Height 154.9 cm (5' 1 ) 09/03/2024 9:03 AM EDT Body Mass Index 32.23 09/03/2024 9:03 AM EDT Plan of Treatment Upcoming Encounters Date Type Department Care Team (Late st Contact Info) Description 09/30/2024 3:45 PM EDT Office Visit [facility] [address] [place] [address] Mayito Fleming MD [address] [place] [address] Health Maintenance Due Date Last Done Comments Lipid Panel 1945 DTaP/Tdap/Td Vaccines (2 - Td or Tdap) 09/09/2017 2007 RSV Patients and Patients Aged 60 years or older (1 - 1-dose 75+ series) 09/09/2018 Zoster Vaccines (3 of 3) 04/22/2023 023, 03/14/2015, 02/15/2013 COVID-19 Vaccine ( season) 2024 03/28/2022, 03/11/2021, 02/21/2021, Additional history exists Alcohol/Substance Use Screening 06/29/2025 06/29/2024 Depression Screening 06/29/2025 06/29/2024, 06/29/19 SDOH Screening 06/29/2025 06/29/2024 Tobacco Screening 07/02/2025 07/02/2024 Pneumococcal Vaccine: 50+ Years Completed 02/24/2015, 11/14/2009 [...] patient's age to complete this topic Meningococcal Vaccine Aged Out No maranda gus eligible based on patient's age to complete this topic RSV under 20 months Aged Out No longe r eligible based on patient's age to complete this topic Rotavirus Vaccines Aged Out No longer eligible based on patient's age to complete this topic Procedures Procedure Name Priority Date/Time Associated Diagnosis Comments POCT URINALYSIS DIPSTICK Routine 09/03/2024 9:19 AM EDT Frequency of urination POCT RAPID COVID ANTIGEN Routine 08/09/2024 4:04 PM EDT Acute cough POCT INFLUENZA A Routine 08/09/2024 4:03 PM EDT Acute cough POCT INFLUENZA B Routine 08/09/2024 4:02 PM EDT Acute cough from Last 3 Months Results * POCT Urinalysis (09/03/2024 9:19 AM EDT) Color, UA Yellow Clarity, UA Clear Glucose, UA Negative Bilirubin, UA Negative Ketones, UA Negative Spec Grav, UA 1.010 Blood, UA Negative Negative, None Detected pH, UA 6.0 Protein, UA Negative Urobilinogen, UA 0.2 Leukocytes, UA Trace Negative, Rare, Trace Nitrite, UA Negative Negative, None Detected Appearance, UA clear QC Media Lot # [id number] Lot# Expiration Date [id number] Urine 09/03/2024 9:19 AM EDT Mayito Charles MD POINT OF CARE TEST ENTER/EDIT ORDERABLES Final Result * POCT Rapid Covid-19 BinaxNOW (08/09/2024 4:04 PM EDT) [facility] Rapid COVID Ag Negative QC Media Lot # [id number] Comment:controls passed Lot# Expiration Date 7,026 Swab 08/09/2024 4:04 PM EDT Claudy Packer MD POINT OF CARE TEST ENTER/ED IT ORDERABLES Final Result * POCT Rapid Influenza A OSOM (08/09/2024 4:03 PM EDT) [facility] Rapid Influenza A Ag Negative Negative, Indeterminate QC Media Lot # [id number] Comment:controls passed Lot# Expiration Date ,025 Swab Nasopharyngeal structure / Unknown 08/09/2024 4:03 PM EDT Claudy Packer MD POINT OF CARE TEST ENTER/ED IT ORDERABLES Final Result * POCT Rapid Influenza B OSOM (08/09/2024 4:02 PM EDT) [facility] Rapid Influenza B Ag Negative Negative, Indeterminate QC Media Lot # [id number] Comment:controls passed Lot# Expiration Date ,025 Swab 08/09/2024 4:02 PM EDT Claudy Packer MD POINT OF CARE TEST ENTER/ED IT ORDERABLES Final Result from Last 3 Months Insurance MEDICARE [facility] MEDICARE SUPPLEMENT Care Teams Administrative Assistant Receptionist Relationship Specialty Start Date End Date Mayito Fleming MD [address] [place] [phone] PCP - General Internal Medicine 06/29/24
--- OUTSIDE RECORDS SUMMARY | 2024-09-03 09:44 | XMS_ITS | Data Portability ---
Author Organization [facility] s [address] Address [address] [place] [address] Care Team Providers Care Data Processing Specialist Name Role Phone [facility] Primary Care Provi elvie Assessment No assessment recorded. Plan of Treatment Reminders Order Date Submit Date Provider Last Modified By Organization Details Last Modified Time Details Appointments None recorded. Lab None recorded. Referral None recorded. Procedures None recorded. Surgeries None recorded. Imaging None recorded. Medication Orders ketotifen 0.025 % (0.035 %) eye drops 2022 023 [id number], [address] [place], [place], [id number], 3 14:10:13 loratadine 10 mg tablet [address] [facility] #[id number], [address], [place], [id number], 3 14:10:14 prednisone 20 mg tablet [address] [facility] #[id number], [address], [place], [id number], 3 14:10:14 Patient TargetsNo targets recorded. Patient Instructions Encounter Date Encounter Id Patient Instructions Last Modified By Organization Details Last Modified Time 10/25/2022 [id number] Use prescribed antibiotic eye drops or ointment as directed to treat the infection. Apply a warm compress (towel soaked in warm water) to the affected eye 3 to 4 times a day. Do this just before applying medicine to the eye. Use a warm, wet cloth to wipe away crusting of the eyelids in the morning. This is caused by mucus drainage during the night. You may also use saline irrigating solution or artificial tears to rinse away mucus in the eye. Do not put a patch over the eye. Wash your hands before and after touching the infected eye. This is to prevent spreading the infection to the other eye, and to other people. Don't share your towels or washcloths with others. You may use acetaminophen or ibuprofen to control pain, unless another medicine was prescribed. Talk with your healthcare provider before using these medicines if you have chronic liver or kidney disease. Also talk with your provider if you have ever had a stomach ulcer or digestive bleeding. Don't wear contact lenses until your eyes have healed and all symptoms are gone. Follow-up care Follow up with your healthcare provider, or as advised. When to seek medical advice Call your healthcare provider right away if any of these occur: Worsening vision Increasing pain in the eye Increasing swelling or redness of the eyelid Redness spreading around the eye norm3 Not available 10/25/2022 14:10:05 Uncertain etiolo gy Will Rx prednisone x 3 d Zyrtec daily x 2 weeks Topical steroid x 1 week Eliminate any new foods, meds, soaps, detergents, hygeine products etc Follow up as needed for no improvement or worsening symptoms Discussed concerning red flags with patient and reasons to follow up in the Emergency Department urgently. terry Not available 10/25/2022 14:09:37 Reason for Referral None Reported. Problems Name Problem SNOMED Code Status Onset Date Resolution Date Notes Provider Name and Address Organization Details Recorded Time Hypertensive disorder 00792762 Active POLLY lofton, PA - [facility] 3 12:59:31 Hypercholestero lemia 54011152 Active POLLY SHEN RA null, PA - [facility] 3 12:59:41 Constipation 50324600 Active POLLY lofton, PA - [facility] 3 12:59:51 Disorder of thyroid gland 38428361 Active POLLY lofton, PA - [facility] 3 13:00:07 Problem Notes None recorded. Procedures Surgical History Date Name Laterality Status Provider Name and Address Organization Details Recorded Time procedure on nerve completed POLLY NYE - [facility] 10/25/2022 13:01:54 Imaging Results None recorded. Procedure Notes None recorded. Medical Equipment None Reported. Allergies No known drug allergies Medications Name Sig Start Date Stop Date Status Note LastModified by Organization Details LastModified Time venlafaxine ER 75 mg capsule,ext ended release 24 hr TAKE 1 CAPSULE BY MOUTH DAILY active Not Available Not Available No t Available ketotifen 0.025 % (0.035 %) eye drops INSTILL 1 DROP INTO AFFECTED EYE(S) BY OPHTHALMI C ROUTE 2 TIMES PER DAY x 10 days. 2022 active Not Available Not Available Not Avai lable valacyclovi r 1 gram tablet NELLY GRETCHEN TABLETA MARIELA VECES AL REBEKAH 10/25 completed Not Available Not Available Not Available senna 8.6 mg tablet TAKE 1 TABLET BY MOUTH DAILY active Not Available Not Available No t Available prednisone 20 mg tablet Take 2 tablets every day by oral route in the morning for 4 days. 2022 active Not Available Not Available Not Avai lable ciprofloxac in 250 mg tablet TAKE 1 TABLET BY MOUTH TWICE DAILY FOR 7 DAYS 10/25 completed Not Available Not Available Not Available levothyroxi ne 75 mcg tablet TAKE 1 TABLET BY MOUTH DAILY active Not Available Not Available No t Available ciclopirox 8 % topical solution APLICAR A LAS UNAS DIARIAMEN TE 10/25 completed Not Available Not Available Not Available benzonatate 100 mg capsule TAKE 1 CAPSULE BY MOUTH THREE TIMES DAILY FOR UP TO 7 DAYS NEEDED FOR COUGH 10/25 completed Not Available Not Available Not Available lisinopril 10 mg tablet TAKE 1 TABLET BY MOUTH DAILY active Not Available Not Available No t Available docusate sodium 100 mg capsule TAKE 1 CAPSULE BY MOUTH TWICE DAILY. active Not Available Not Available No t Available bisacodyl 5 mg tablet,kvng yed release TAKE 2 TABLETS BY MOUTH RIGHT BEFORE YOUR FIRST DOSE OF LIQUID PREP 10/25 completed Not Available Not Available Not Available polyethylen e glycol 3350 17 gram/dose oral powder MIX AND DRINK 1 PACKET BY MOUTH DAILY 10/25 completed Not Available Not Available Not Available albuterol sulfate HFA 90 mcg/actuati on aerosol inhaler INHALE 2 PUFFS INTO THE LUNGS EVERY 4 HOURS NEEDED FOR COUGH OR WHEEZING active Not Available Not Available No t Available fluticasone propionate 50 mcg/actuati on nasal spray,suspe nsion SHAKE LIQUID AND USE 1 TO 2 SPRAYS IN EACH NOSTRIL DAILY 10/25 completed Not Available Not Available Not Available loratadine 10 mg tablet Take 1 tablet every day by oral route in the morning for 30 days. 2022 active Not Available Not Available Not Avai lable ezetimibe 10 mg tablet TAKE 1 TABLET BY MOUTH DAILY active Not Available Not Available No t Available aspirin active Not Available Not Avail able Not Available Vitamin D3 50 mcg (2,000 unit) tablet TAKE 1 TABLET BY MOUTH DAILY active Not Available Not Available No t Available GaviLyte-G 236 gram-22.74 gram-6.74 gram-5.86 gram oral solution 10/25 completed Not Available Not Available Not Available Vitals Date Recorded Body height Body mass index (BMI) Body weight Pain severity - 0-10 verbal numeric rating [Score] - Reported Respiratory rate Oxygen saturation Oxygen saturation in Arterial blood by Pulse oximetry Heart rate Body temperature Systolic blood pressure Diastolic blood pressure Provider Name and Address Organization Details Last Updated DateTime 3 154.94 cm 33.8 kg/m2 65840.0 3 g 2 18 /min 95 % 95 % 69 /min 98.9 [degF] 134 mm[Hg] 77 mm[Hg] POLLY NYE - [facility] 13:04:20 Social History Question Answer Notes LastModified by Organizat ion Details LastModified Time Tobacco Smoking Status Never Smoker POLLY lofton PA - [facility] 10/25/2022 13:01:11 What Is Your Level Of Alcohol Consumption? Occasional Information not available 10/25/2022 Have You Had Direct Contact, Or Contact During Intimacy, With Monkeypox Rash, Scabs, Or Body Fluids From A Person With Monkeypox? No Information not available 10/25/2022 Do You Use Any Illicit Or Recreational Drugs? No Information not available 10/25/2022 Have You Recently Traveled Abroad? No Information not available 10/25/2022 Do You Or Have You Ever Used Any Other Forms Of Tobacco Or Nicotine? No Information not available 10/25/2022 Sex: Unknown Functional Status None recorded. Mental Status None recorded. Family History Relationship Description Onset Age of this Age Resolved Age Notes LastModified by Organization Details LastModified Time Mother Malignant neoplasm of skin Not available 13:00:29 Mother Heart disease Not available 13:00:50 Medical History No medical history recorded. Gynecological HistoryNo gynecological history recorded. Obstetrics History GPAL:G 0 P 0 0 0 0 Immunizations Vaccine Type Date Status Note Provider Nam e and Address Organization Details Recorded Time COVID-19, mRNA, LNP-S, PF, 30 mcg/0.3 mL dose 1 completed POLLY HARRELL-HASSAN null, PA - [facility] 10/25/2022 12:56:20 COVID-19, mRNA, LNP-S, PF, 30 mcg/0.3 mL dose 1 completed POLLY HARRELL-HASSAN null, PA - [facility] 10/25/2022 12:56:20 COVID-19, mRNA, LNP-S, PF, 30 mcg/0.3 mL dose 1 completed POLLY HARRELL-HASSAN null, PA - [facility] 10/25/2022 12:56:20 COVID-19, mRNA, LNP-S, PF, 30 mcg/0.3 mL dose 1 completed POLLY HARRELL-HASSAN null, PA - [facility] 10/25/2022 12:56:20 COVID-19, mRNA, LNP-S, bivalent, PF, 30 mcg/0.3 mL dose 2 completed POLLY HARRELL-HASSAN null, PA - [facility] 10/25/2022 12:56:20 pneumococcal polysaccharide PPV23 0 completed POLLY HARRELL-HASSAN null, PA - [facility] 10/25/2022 12:56:20 Tdap 8 completed POLLY HARRELL-HASSAN null, PA - [facility] 10/25/2022 12:56:20 Pneumococcal conjugate PCV 13 5 completed POLLY HARRELL-HASSAN null, PA - [facility] 10/25/2022 12:56:20 zoster live 3 completed POLLY HARRELL-HASSAN null, PA - [facility] 10/25/2022 12:56:20 zoster live 5 completed POLLY HARRELL-HASSAN null, PA - [facility] 10/25/2022 12:56:20 Influenza, high-dose, trivalent, PF 1 completed POLLY HARRELL-HASSAN null, PA - [facility] 10/25/2022 12:56:20 Influenza, high-dose, trivalent, PF 7 completed POLLY HARRELL-HASSAN null, PA - [facility] 10/25/2022 12:56:20 Influenza, split virus, trivalent, preservative 3 completed POLLY HARRELL-HASSAN null, PA - [facility] 10/25/2022 12:56:20 Influenza, split virus, trivalent, preservative 4 completed POLLY HARRELL-HASSAN null, PA - [facility] 10/25/2022 12:56:20 Influenza, split virus, trivalent, preservative 2 completed POLLY HARRELL-HASSAN null, PA - [facility] 10/25/2022 12:56:20 Past Encounters Encounter ID Performer Location Encounter Start Date Encounter Closed Date Diagnosis/Indication Diagnosis SNOMED-CT Code Diagnosis ICD10 Code Diagnosis Note [id number] [facility] [address] [place] [address] 05/09/2020 13:44:46 05/09/2020 14:01:49 [id number] [place] [address] [facility] [address] [place] [address] 10/25/2022 12:40:41 10/25/2022 14:21:11 Acute atopic conjunctivitis of bilateral eyes 3715719157 25632 H10.13 Allergic c ontact dermatitis 192761988 L23.9 Health Concerns Section Related Observation LastModified by Organization Anu sibley LastModified Time None Recorded Concern Status LastModified by Organization Details LastModified Time None Recorded Advance Directives Directive None Recorded Payers Encounter Date Sequence Insurance Name Policy Number Policy Hdz Covered Member ID Hdz Member ID Guarantor Name 05/09/2020 1 [place]: [facility] Nataliia Curry [id number] Nataliia Norton 05/09/2020 2 [facility] - PLAN 1 (MEDICARE SUPPLEMENT) [id number] Nataliia Olvera [id number] Nataliia Norton 10/25/2022 1 [place] [facility] Nataliia Curry [id number] Nataliia Norton 10/25/2022 2 [facility] 1 (MEDICARE SUPPLEMENT) [id number] Nataliia Olvera [id number] Nataliia Norton Notes Date Note Type Note Provider Name and Address Organization Details Recorded Time 3 text/html Eye problemsReported bypatient.source of patient informationInformation obtained from patient; Patient arrived at Urgent Care ambulatory; learning styles: auditory Location:bilateral Eye Symptoms:no pain in the eyes; no blurred vision;sensitivity to light;redness;discharge;reese rosa;itching Severity:mild Onset/Timindays Context:allergies Modifying Factors:nothing gives relief tiara Alleviating factors:nothing helps Lb Rader NP [address] [place], [address], PA - [facility] 10/25/2022 14:10:51 OBGyn Episode No OBEpisode recorded.
--- OUTSIDE RECORDS SUMMARY | 2024-09-03 09:44 | XMS_ITS | Encounter Summary ---
Author Organization [employer] Address [address] [facility] [address] [place] [address] Care Team Providers Care Care Coordination Manager Name Role Phone Mayito Fleming MD Primary Care Prov ider Reason for Visit * Reason Onset Date Comments Medication Question 06/29/2024 Encounter Details Date Type Department Care Team ([facility] st Contact Info) Description 06/29/2024 Telephone [facility] MED [facility] PEDS [address] [place], [place] [phone] Mayito Fleming MD [address] [place] [address] Medication Question Social History Tobacco Use Types Packs/Day Years [...] encounter Miscellaneous Notes * Telephone Encounter - Genny Cortes RN - 07/02/2024 11:51 AM EST Spoke with Paige at [facility] pharmacy to review coverage of medication listed below with pt insurance. Paige notified RN that medication was filled yesterday at [facility]. * Telephone Encounter - Araseli Escobedo - 06/29/2024 4:03 PM EST Bo Hansen at [facility] pharmacy calling to inform provider script for venlafaxine XR (Effexor XR) 37.5 MG 24 hr tablet is not covered by pt insurance. documented in this encounter Plan of Treatment Upcoming Encounters Date Type Department Care Team (Late st Contact Info) Description 09/30/2024 3:45 PM EDT Office Visit [facility] MED [facility] PEDS [address] [place] [address] Mayito Fleming MD [address] [place] [address] documented as of this encounter Visit Diagnoses Not on filedocumented in this encounter Additional Health Concerns Assessment Noted Time PHQ-9 Depression Total Score: 0 06/29/19 1:48 PM EST documented as of this encounter Care Teams Care Coordination Manager Relationship Specialty Start Date End Date Mayito Fleming MD [address] [place] [address] PCP - General Internal Medicine 06/29/24 documented as of this encounter
--- OUTSIDE RECORDS SUMMARY | 2024-09-03 09:44 | XMS_ITS | Encounter Summary ---
Author Organization [employer] Address [address] [facility] [address] [place] [address] Care Team Providers Care Slubber Operator Name Role Phone Mayito Fleming MD Primary Care Prov ider Encounter Details Date Type Department Care Team ([facility] st Contact Info) Description 09/03/2024 8:30 AM EDT Office Visit [facility] MED & PEDS [address] [place], [place] [phone] Mayito Fleming MD [address] [place], [place] [phone] Primary hypertension (Primary Dx); Acquired hypothyroidism; Frequency of urination Social History Tobacco Use Types Packs/Day Years [...] AM EST documented as of this encounter Last Filed Vital Signs Vital Sign Reading Time Taken Comments Blood Pressure 144/87 09/03/2024 9:03 AM EDT Pulse 68 09/03/2024 9:03 AM EDT Temperature 37.1 ??C (98.7 ??F) 09/03/2024 9:03 AM ED T Respiratory Rate 16 09/03/2024 9:03 AM EDT Oxygen Saturation - - Inhaled Oxygen Concentration - - Weight 77.4 kg (170 lb 9.6 oz) 09/03/2024 9:03 A M EDT Height 154.9 cm (5' 1 ) 09/03/2024 9:03 AM EDT Body Mass Index 32.23 09/03/2024 9:03 AM EDT documented in this encounter Plan of Treatment Upcoming Encounters Date Type Department Care Team ([facility] st Contact Info) Description 09/30/2024 3:45 PM EDT Office Visit [facility] MED & PEDS [address] [place] [address] Mayito Fleming MD [address] [place] [address] Scheduled Orders Name Type Priority Associated Diagnoses Orde r Schedule Hepatic Function Panel Lab Routine Primary hypertension Expected: 09/03/2024 (Approximate), Expires: 09/03/2025 Lipid Panel, Standard Lab Routine Primary hypertension Expected: 09/03/2024 (Approximate), Expires: 09/03/2025 TSH W/Reflex to FT4 Lab Routine Primary hypertension Acquired hypothyroidism Expected: 09/03/2024 (Approximate), Expires: 09/03/2025 Culture, Urine, Routine Microbiology Routine Frequency of urination Expected: 09/03/2024 (Approximate), Expires: 09/03/2025 documented as of this encounter Procedures Procedure Name Priority Date/Time Associated Diagnosis Comments POCT URINALYSIS DIPSTICK Routine 09/03/2024 9:19 AM EDT Frequency of urination documented in this encounter Results * POCT Urinalysis (09/03/2024 9:19 AM [...] Media Lot # [id number] Lot# Expiration Date Urine 09/03/2024 9:19 AM EDT Mayito Charles MD POINT OF CARE TEST ENTER/EDIT ORDERABLES Final Result documented in this encounter Visit Diagnoses Diagnosis Primary hypertension- Primary Unspecified essential hypertension Acquired hypothyroidism Unspecified hypothyroidism Frequency of urination Urinary frequency documented in this encounter Additional Health Concerns Assessment Noted Time PHQ-9 Depression Total Score: 0 06/29/19 1:48 PM EST documented as of this encounter Care Teams Slubber Operator Relationship Specialty Start Date End Date Mayito Fleming MD [address] [place] [address] PCP - General Internal Medicine 06/29/24 documented as of this encounter
--- OUTSIDE RECORDS SUMMARY | 2024-09-03 09:44 | XMS_ITS | Encounter Summary ---
Author Organization [employer] Address [address] [facility] [address] [facility] [address] [place] [address] Care Team Providers Care Intervention Teacher Name Role Phone Mayito Fleming MD Primary Care Prov ider Encounter Details Date Type Department Care Team (Latest Contact Info) Description 09/03/2024 Travel Social History Tobacco Use Types Packs/Day Years [...] AM EST documented as of this encounter Plan of Treatment Upcoming Encounters Date Type Department Care Team (Late st Contact Info) Description 09/30/2024 3:45 PM EDT Office Visit [facility] MED & PEDS [address] [place] [address] Mayito Fleming MD [address] [place] [address] documented as of this encounter Visit Diagnoses Not on filedocumented in this encounter Additional Health Concerns Assessment Noted Time PHQ-9 Depression Total Score: 0 06/29/19 1:48 PM EST documented as of this encounter Care Teams Intervention Teacher Relationship Specialty Start Date End Date Mayito Fleming MD [address] [place] [address] PCP - General Internal Medicine 06/29/24 documented as of this encounter
--- OUTSIDE RECORDS SUMMARY | 2024-09-03 09:44 | XMS_ITS | Patient Health Record ---
Author Organization [employer] [facility] Address [address] [facility] [address] [place] [address] Care Team Providers Care Aoc Director Combat Plans Officer Name Role Phone MEAGHAN SALMON Primary Care Provider Unavaila Gabriela Darling Unavailable [phone] Reason For Referral No Information Medications Medication SIG (Take, Route, Frequency, Duration) Notes Start Date End Date Status Levothyroxine Sodium 75 MCG 1 tablet on an empty stomach in the morning Orally Once a day Active Venlafaxine HCl 75 MG 1 tablet with food Orally Once a day Active Aspirin EC 81 MG 1 tablet Orally Once a day Active Vitamin D-3 1000 UNIT 1 capsule Orally e very other day Active Lisinopril 10 MG 1 tablet Orally Once a day Active Social History Tobacco Use: Social History Observation Description Date Details (start date - stop date) Never Smoker NA - NA Tobacco Use/Smoking Question Answer Notes Are you a nonsmoker Alcohol Screen (Audit-C) Question Answer Notes Did you have a drink contain ing alcohol in the past year? Yes How often did you have a dri nk containing alcohol in the past year? 2 to 4 times a month (2 points) How many drinks did you have on a typical day when you were drinking in the past year? 1 or 2 drinks (0 point) How often did you have 6 or more drinks on one occasion in the past year? Never (0 point) Points 2 Sexual History Question Answer Notes Had sex in the past 12 months (vaginal, oral, or anal)? No Plan Of Treatment Pending Test Test Name Order Date Ultrasound : Sono Hystergram 10/29/2016 ENDOMETRIAL BX 10/29/2016 URINE CULTURE 01/10/2017 COMPLETE URINALYSIS 01/10/2017 Insurance Providers Payer Name Payer Address Payer Phone Subscriber Number Group Number Insured Name Patient Relationship to Insured Coverage Start Date Coverage End Date MEDICARE [address] [place], [place] [id number] SHIKHA PACHECO Self - patient is the insured [facility] [address] [facility] [place] [phone] [id number] SHIKHA PACHECO Self - patient is the insured Medical (General) History Medical History History ICD Code Emotional / Mental problems Thyroid Disease Abnormal findings on diagnostic imaging of other specified body structures R93.8 Essential (primary) hypertension I10 Unspecified asthma, uncomplicated J45.90 9 Headache R51 Unspecified osteoarthritis, unspecified site M19.90 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
[2024-09-03 14:44] LABS: Alanine Aminotransferase 22 U/L (0-31); Albumin Level 3.9 g/dL (3.5-5.0); Alkaline Phosphatase 85 U/L (39-117); Aspartate Amino Transferase 38 U/L (5-31); Bilirubin Direct 0.1 mg/dL (0.0-0.5); Bilirubin Total 0.5 mg/dL (0.0-1.0); Cholesterol 264 mg/dL (<200); HDL Cholesterol 46 mg/dL (>40); LDL Cholesterol Calculated 176 mg/dL (<100); Total Protein 6.7 g/dL (6.5-8.0); Triglycerides 212 mg/dL (<150)
== END 2024-09-03 09:32 | disposition home or self-care (01) ==
LOC: HO.CHCLDS 09:31
PROVIDERS: Visit Provider Internal Medicine
DX: I10 Essential (primary) hypertension (principal); E03.9 Hypothyroidism, unspecified; R35.0 Frequency of micturition
CPT/HCPCS: 36415; 80061; 80076; 84443; 87086

== ENCOUNTER 2025-03-21 09:38 | Outpatient (REF) | payer MEDICARE, OTHER, SELFPAY ==
--- OUTSIDE RECORDS SUMMARY | 2025-03-21 10:58 | XMS_ITS | Clinical Summary ---
Author Organization [employer] [facility] Address [address] [place] [address] Care Team Providers Care Speech Language Specialist Name Role Phone Mayito Fleming Primary Care Provide r Allergies Active Allergy Reactions Criticality Noted Date Comments Shellfish Containing Products Rash High 2022 Ubkmofo-Nnp-Zrv Reductase Inhibitors Muscular Issues,Pain High 08/24/2018 Medications inhalat.spacing dev,large mask spacer Use with inhaler 2 times/day for 30 days. 3 Active albuterol HFA (PROAIR HFA ; PROVENTIL HFA ; VENTOLIN HFA) 90 mcg/actuation inhaler Inhale 2 puffs by mouth every 4 (four) hours if needed for shortness of breath or wheezing. 4 Active aspirin 81 mg EC tablet Take 1 tablet (81 mg total) by mouth 1 (one) time each day. Active budesonide-form oteroL (SYMBICORT) 160-4.5 mcg/actuation inhaler Inhale 2 puffs by mouth 2 (two) times a day. 4 Active colchicine (COLCRYS) 0.6 mg tablet Take 1 tablet (0.6 mg total) by mouth 2 (two) times a day. 4 Active diclofenac (VOLTAREN) 1 % topical gel Apply 1 g topically 3 (three) times a day if needed. 4 Active docusate sodium (COLACE) 100 mg capsule Take 1 capsule (100 mg total) by mouth 2 (two) times a day. Active fenofibrate (LOFIBRA) 160 mg tablet Take 1 tablet (160 mg total) by mouth 1 (one) time each day. Active Allergy Relief, fexofenadine, 180 mg tablet Take 1 tablet (180 mg total) by mouth 1 (one) time each day. 4 Active Advair HFA 230-21 mcg/actuation inhaler Inhale 1 puff by mouth 2 (two) times a day. Active guaiFENesin (MUCINEX) 600 mg 12 hr tablet Take 1 tablet (600 mg total) by mouth 2 (two) times a day if needed. 4 Active ibuprofen (ADVIL,MOTRIN) 800 mg tablet Take 1 tablet (800 mg total) by mouth every 8 (eight) hours if needed for mild pain, moderate pain, fever - temperature GREATER than 38 C (100.4 F) or headaches. 4 Active metroNIDAZOLE (METROCREAM) 0.75 % cream Apply topically 2 (two) times a day. 4 Active omeprazole (PriLOSEC) [address] capsule Take 1 capsule (40 mg total) by mouth 1 (one) time each day. Active oseltamivir (TAMIFLU) 75 mg capsule Take 1 capsule (75 mg total) by mouth 2 (two) times a day. for 5 days 4 Active pantoprazole (PROTONIX) 40 mg EC tablet Take 1 tablet (40 mg total) by mouth 1 (one) time each day. 4 Active lisinopril (PRINIVIL,ZESTR IL) 40 mg tablet Take 1 tablet (40 mg total) by mouth 1 (one) time each day. 30 each 5 4 Active venlafaxine XR (EFFEXOR-XR) 150 mg 24 hr capsule Take 1 capsule (150 mg total) by mouth 1 (one) time each day with breakfast. 90 capsule 1 5 Active levothyroxine (SYNTHROID, LEVOTHROID) 75 mcg tablet TAKE 1 TABLET BY MOUTH DAILY 30 tablet 1 5 Active famotidine (PEPCID) 40 mg tablet TAKE 1 TABLET BY MOUTH TWICE DAILY 60 tablet 2 Active rosuvastatin (CRESTOR) 10 mg tablet Take 1 tablet (10 mg total) by mouth daily. 5 11/02/19 Active hydroCHLOROthia zide (HYDRODIURIL) 25 mg tablet Take 1 tablet (25 mg total) by mouth daily. 5 10/01/19 Active DULoxetine (CYMBALTA) [address] capsule Take 1 capsule (30 mg total) by mouth daily. 5 10/01/19 Active senna 8.6 mg tablet Take 1 tablet (8.6 mg total) by mouth 1 (one) time each day. 90 each 5 05/04/20 Active Active Problems Problem Noted Date Diagnosed Date [...] Encounters Date Type Department Care Team Description 02/22/2025 2:02 PM EDT - 02/22/2025 11:59 PM EDT Hospital Encounter [facility] Bone Density [address] [place] [id number] Postmenopausal Discharge Disposition: Home or Self Care 02/14/2025 11:30 AM EDT Office Visit Pulmonology - [place] [address] [facility] [address] [place] [id number] Kiki Durant MD Mild intermittent asthma, unspecified whether complicated (Primary Dx); TB lung, latent; Acquired elevated diaphragm; Acute left-sided back pain, unspecified back location; Pain of left upper extremity; Dizziness; Pain of right lower extremity from Last 3 Months Immunizations Immunization Administration Dates Next Due Influenza trivalent, 0.5mL [...] 11/13/2006 PROCEDURE: HISTORICAL COLONOSCOPY ESOPHAGOGASTRODUODENOSCOPY 11/2006 PROCEDURE: NM ESOPHAGOGASTRODUODENOSCOPY TRANSORAL DIAGNOSTIC COLONOSCOPY 10/17/2017 PROCEDURE: HISTORICAL COLONOSCOPY BREAST BIOPSY PROCEDURE: BX BREAST; PERC NEEDLE CORE W/IMAG GUID COLONOSCOPY PROCEDURE: HISTORICAL COLONOSCOPY; COMMENT: Reports performing at [facility] 3 to 4 years ago Medical History [...] = 0.6 oz pur e alcohol) Comments No Sex and Gender Information Value Date Recorded Sex Assigned at Female 08/23/2024 9:37 PM EDT Legal Sex Female 4:52 PM EST Gender Identity Female 08/23/2024 9:37 PM EDT Sexual Orientation Straight 08/23/2024 9: 37 PM EDT Obstetrics History Para Term AB IAB SAB Ectopic Multiple Livin g Live Births 1 Last Filed Vital Signs Vital Sign Reading Time Taken Comments Blood Pressure 123/58 02/14/2025 11:28 AM EDT Pulse 83 02/14/2025 11:28 AM EDT Temperature 36.2 C (97.1 F) 02/14/2025 11:28 AM EDT Respiratory Rate 18 08/23/2024 7:43 PM EDT Oxygen Saturation 98% 02/14/2025 11:28 AM EDT Inhaled Oxygen Concentration - - Weight 72.6 kg (160 lb) 02/14/2025 11:28 AM EDT Height 154.9 cm (5' 1 ) 11/11/2024 9:25 AM EDT Body Mass Index 30.23 11/11/2024 9:25 AM EDT Plan of Treatment Health Maintenance Due Date Last Done Comments DTaP,Tdap,and Td Vaccines (2 - Td or Tdap) 09/09/2017 2007 RSV Immunization Adult Patients (1 - 1-dose 75+ series) 09/09/2018 Medicare Annual Wellness Visit 05/09/2020 Social Influencers of Health Screening 05/09/2020 Zoster Vaccines (3 of 3) 04/22/2023 023, 03/14/2015, 02/15/2013 Depression Screening 05/12/2024 09/30/2023 Falls Risk Assessment 2024 09/11/2023, 024 COVID-19 Vaccine ( season) 2025 03/28/2022, 03/11/2021, 02/21/2021, Additional history exists Influenza Vaccine (#1) 2025 , 02/15/2021, 04/14/2017, Additional history exists Hypertension/CHF/CAD Annual BMP Blood Test 08/23/2025 08/23/2024, 09/30/2023, 09/30/2023 Breast Cancer Screening 11/11/2026 11/12/19, 12/17/2019, 10/02/2018 Cholesterol Screening (Lipid Panel) 09/03/2029 09/03/2024, 09/30/2023, 09/30/2023 Osteoporosis Screening (Bone Density Screening) 02/22/2035 02/22/2025, 02/11/2022 Pneumococcal Vaccine: 50+ Years Completed 02/24/2015, 11/14/2009 HIB Vaccines Aged Out No longer eligi [...] Procedure Name Priority Date/Time Associated Diagnosis Comments BD BONE DENSITY DXA AXIAL SKELETON Routine 02/22/2025 2:42 PM EDT Postmenopausal MG MAMMO DIGITAL SCREENING W MANUEL BILAT Routine 11/11/2024 9:35 AM EDT Encounter for screening mammogram for malignant neoplasm of breast BASIC METABOLIC PANEL STAT 08/23/2024 7:50 PM EDT DEPRESSION SCREENING Routine 09/30/2023 LIPID PANEL Routine 09/30/2023 FALLS RISK ASSESSMENT Routine 09/11/2023 from Last 3 Months or Most Recently Relevant to Health Maintenance Results * BD Bone Density DXA Axial Skeleton (02/22/2025 2:42 PM EDT) Anatomical Region Laterality Modality Wrist, Hip, L-spine Bone Densito metry 02/22/2025 3:53 PM EDT Impressions 02/22/2025 3:54 PM EDT Normal bone mineral density. Telerad POPEYE ([id number]) -------- FINAL REPORT -------- Dictated By: Irasema Love Dictated Date: 02/22/2025 15:53 ET Assigned Physician: Irasema Love Reviewed and Electronically Signed By: Irasema Love Signed Date: 02/22/2025 15:54 ET Workstation ID: [id number] Transcribed By: Self Edit Transcribed Date: 02/22/2025 15:53 ET Narrative 02/22/2025 3:54 PM EDT History: Low estrogen state due to menopause. Parent hip fracture. Comparison: No comparison study at this institution. Findings: Bone densitometry is performed utilizing dual energy x-ray absorptiometry (DXA) in the CereScanigy unit. The lumbar spine and proximal femora are evaluated in the AP projection. The FRAX questionaire was completed. The results indicate normal bone mineral density, with a left femoral neck T- score of -0.6. The Z score is 1.4, indicating bone mineral density slightly higher than normal for age. The detailed DEXA report will be mailed to the referring physician's office. DualFemur FRAX: 10-year Probability of Fracture: Major Osteoporotic 8.2 percent Hip 3.3 percent. Procedure Note Irasema Love MD - 02/22/2025 History: Low estrogen state due to menopause. Parent hip fracture. Comparison: No comparison study at this institution. Findings: Bone densitometry is performed utilizing dual energy x-ray absorptiometry(DXA) in the [employer] Prodigy unit. The lumbar spine and proximal femora areevaluated in the AP projection. The FRAX questionaire was completed. The results indicate normal bone mineral density, with a left femoral neckT- score of -0.6. The Z score is 1.4, indicating bone mineral densityslightly higher than normal for age. The detailed DEXA report will bemailed to the referring physician's office. DualFemur FRAX: 10-year Probability of Fracture: Major Osteoporotic 8.2percent Hip 3.3 percent. IMPRESSION: Normal bone mineral density. Telerad POPEYE ([id number]) -------- FINAL REPORT -------- Dictated By: Irasema Love Dictated Date: 02/22/2025 15:53 ET Assigned Physician: Irasema Love Reviewed and Electronically Signed By: Irasema Love Signed Date: 02/22/2025 15:54 ET Workstation ID: [id number] Transcribed By: Self Edit Transcribed Date: 02/22/2025 15:53 ET us Gerard Monteiro MD IMG DXA PROCEDURES Final Resul t * MG Mammo Digital Screening w Manuel bilat (11/11/2024 9:35 AM EDT) Anatomical Region Laterality Modality Breast Bilateral Mammography 11/11/2024 9:39 AM EDT Impressions 11/11/2024 9:44 AM EDT No mammographic evidence of malignancy. A negative mammogram in the presence of a clinically suspicious palpable abnormality does not preclude the possibility of malignancy or alter the indications for biopsy. PQRI CPT II 3342F Code 84072, 55335 PQRI 225 CPT II 7025F TISSUE DENSITY: There are scattered areas of fibroglandular density. (BI-RADS category B) IMPRESSION: Benign. BI-RADS CATEGORY: 2 - BENIGN RECOMMENDATION: Screening bilateral mammogram is recommended in 1 year. Mammo Location: [facility], [address] [place] [address] -------- FINAL REPORT -------- Dictated By: Diego Escalante Dictated Date: 11/11/2024 09:39 ET Assigned Physician: Diego Escalante Reviewed and Electronically Signed By: Diego Escalante Signed Date: 11/11/2024 09:44 ET Workstation ID: [id number] Transcribed By: Self Edit Transcribed Date: 11/11/2024 09:39 ET Narrative 11/11/2024 9:44 AM EDT CLINICAL: The patient is a 79 years Female presenting for routine screening mammography. COMPARISON: 12/17/2019, 10/02/2018, and 06/10/2017. TECHNIQUE: Full-field digital mammography of the breasts bilaterally consisting of tomosynthesis in MLO and CC projection is performed in the Vizerraographe 2000-D unit. Computer aided detection utilizing the iCAD system was utilized. FINDINGS: The breasts are again seen to be composed of a combination of fatty and fibroglandular elements. There has been progressive calcification medially in the right breast; these calcifications remain coarse and benign appearance. Scattered bilateral benign punctate and rim calcifications are again seen. There is no suspicious cluster of microcalcifications, mass, or area of architectural distortion. There is no skin thickening or nipple retraction. Procedure Note Diego Escalante MD - 11/11/2024 CLINICAL: The patient is a 79 years Female presenting for routinescreening mammography. COMPARISON: 12/17/2019, 10/02/2018, and 06/10/2017. TECHNIQUE: Full-field digital mammography of the breasts bilaterallyconsisting of tomosynthesis in MLO and CC projection is performed in the[employer] Senographe 2000-D unit. Computer aided detection utilizing the iCADsystem was utilized. FINDINGS: The breasts are again seen to be composed of a combination offatty and fibroglandular elements. There has been progressivecalcification medially in the right breast; these calcifications remaincoarse and benign appearance. Scattered bilateral benign punctate and rimcalcifications are again seen. There is no suspicious cluster ofmicrocalcifications, mass, or area of architectural distortion. There isno skin thickening or nipple retraction. IMPRESSION: No mammographic evidence of malignancy. A negative mammogram in the presence of a clinically suspicious palpableabnormality does not preclude the possibility of malignancy or alter theindications for biopsy. PQRI CPT II 3342F Code 19472, 92175 PQRI 225 CPT II 7025F TISSUE DENSITY: There are scattered areas of fibroglandular density.(BI-RADS category B) IMPRESSION: Benign. BI-RADS CATEGORY: 2 - BENIGN RECOMMENDATION: Screening bilateral mammogram is recommended in 1 year. Mammo Location: [facility], [address] [place] [id number] -------- FINAL REPORT -------- Dictated By: Diego Escalante Dictated Date: 11/11/2024 09:39 ET Assigned Physician: Diego Escalante Reviewed and Electronically Signed By: Diego Escalante Signed Date: 11/11/2024 09:44 ET Workstation ID: [id number] Transcribed By: Self Edit Transcribed Date: 11/11/2024 09:39 ET us Gerard Monteiro MD IMG BI PROCEDURES Final Result * Basic metabolic panel (08/23/2024 7:50 PM EDT) Sodium 141 133 - 145 mmol/L LAB CHEMISTRY METHOD 08/23/2024 8:39 PM [facility] Potassium 3.6 3.5 - 5.5 mmol/L LAB CHEMISTRY METHOD 08/23/2024 8:39 PM [facility] Chloride 107 96 - 110 mmol/L LAB CHEMISTRY METHOD 08/23/2024 8:39 PM [facility] CO2 30 21 - 32 mmol/L LAB CHEMISTRY METHOD 08/23/2024 8:39 PM [facility] Anion Gap 4 3 - 11 LAB CHEMISTRY METHOD 08/23/2024 8:39 PM [facility] Glucose 91 70 - 100 mg/dL LAB CHEMISTRY METHOD 08/23/2024 8:39 PM [facility] BUN 15 5 - 25 mg/dL LAB CHEMISTRY METHOD 08/23/2024 8:39 PM [facility] Creatinine 0.71 0.50 - 1.10 mg/dL LAB CHEMISTRY METHOD 08/23/2024 8:39 PM [facility] eGFR 86 >=60 mL/min/1. 73m2 LAB CHEMISTRY METHOD 08/23/2024 8:39 PM [facility] Comment:Calculation based on the Chronic Kidney Disease Epidemiology Collaboration (CKD-EPI) equation refit without adjustment for race. BUN/Creatinine Ratio 21.1 LAB CHEMISTRY METHOD 08/23/2024 8:39 PM [facility] Calcium 9.3 8.5 - 10.5 mg/dL LAB CHEMISTRY METHOD 08/23/2024 8:39 PM EDT [facility] Blood Venous blood specimen / Unknown Venipuncture / Unknown 08/23/2024 7:50 PM EDT 08/23/2024 8:15 PM EDT Callum Ray MD LAB BLOOD ORDERABLES Final Resu lt [facility] [address] [place] [address], * Depression Screening (09/30/2023) Pathologist [facility] Depression Screening abstracted Historical Provider HEALTH MAINTENANCE Final Result * (ABNORMAL) Lipid panel (09/30/2023) Pathologist [facility] LDL/HDL Ratio 5(A) 0 - 4 Triglycerides 256(A) 0 - 150 mg/dL Cholesterol 290(A) 0 - 200 mg/dL HDL 56 >=40 mg/dL LDL Cholesterol 183(A) 0 - 100 mg/dL Blood Venous blood specimen / Unknown Result [facility] Historical Provider LAB BLOOD ORDERABLES Gayle l Result * Falls Risk Assessment (09/11/2023) Pathologist [facility] Falls Risk Assessment abstracted Historical Provider HEALTH MAINTENANCE Final Result from Last 3 Months or Most Recently Relevant to Health Maintenance Insurance [facility] MEDICARE Advance Directives Documents on File Type Date Recorded Patient Transit Planner Expl anation Health Care Decision (hx) 08/12/2023 AD HARRIS DIRECTIVE Health Care Decision (hx) 08/12/2023 AD HARRIS DIRECTIVE Care Teams Speech Language Specialist Relationship Specialty Start Date End Date Mayito Fleming [address] [place] [phone] PCP - General Internal Medicine 11/02/24
--- OUTSIDE RECORDS SUMMARY | 2025-03-21 10:58 | XMS_ITS | Encounter Summary ---
Author Organization [employer] Address [address] [facility] [address] [place] [address] Care Team Providers Care Regional Business Development Manager Name Role Phone Mayito Fleming MD Primary Care Prov ider Mayito Fleming MD Primary Care Prov ider Encounter Details Date Type Department Care Team (Late st Contact Info) Description 12/30/2024 Orders Only [facility] [address] [place], [place] [phone] Provider, MD Elie Social History Tobacco Use Types Packs/Day Years [...] Upcoming Encounters Date Type Department Care Team ([facility] Contact Info) Description 03/24/2025 10:30 AM EST Telemedicine [facility] [address] [place], [place] [phone] Mayito Fleming MD [address] [place] [address] documented as of this encounter Procedures Procedure Name Priority Date/Time Associated Diagnosis Comments THYROID PANEL WITH TSH Routine 12/21/2024 10:56 AM EDT documented in this encounter Results * Thyroid Panel with TSH (12/21/2024 10:56 AM EDT) Blood us Historical Provider LAB BLOOD ORDERABLES Gayle l Result documented in this encounter Visit Diagnoses Not on filedocumented in this encounter Additional Health Concerns Assessment Noted Time PHQ-9 Depression Total Score: 0 06/29/19 25 1:48 PM EST documented as of this encounter Care Teams Regional Business Development Manager Relationship Specialty Start Date End Date Mayito Fleming MD [address] [place] [address] PCP - General Internal Medicine 06/29/24 01/04/25 Mayito Fleming MD [address] [place] [address] PCP - General Internal Medicine 01/11/25 documented as of this encounter
--- OUTSIDE RECORDS SUMMARY | 2025-03-21 10:58 | XMS_ITS | Clinical Summary ---
Author Organization [employer] Address 75 [facility] 7t [place] [address] Care Team Providers Care Flower Buncher Or Picker Name Role Phone Mayito Fleming MD Primary Care Prov ider Allergies Active Allergy Reactions Criticality Noted Date Comments Shellfish Protein-Containing Drug Products Rash Low 06/29/2024 Statins Muscle Pain 06/29/2024 Medications cyanocobalamin (Vitamin B-12) 1000 MCG tablet Take 1,000 mcg by mouth Once per day. Active famotidine (Pepcid) 40 MG tablet Take 40 mg by mouth 2 times daily. Active acetaminophen (Tylenol) 500 MG tablet Take 1 tablet by mouth every 6 (six) hours if needed. 08/04/19 24 Active Docusate Sodium (DSS) 100 MG capsule Take 1 capsule by mouth 2 times daily. Active Senna-Time 8.6 MG tablet Take 1 tablet by mouth Once per day. Active Advair HFA 230-21 MCG/ACT inhaler Inhale 1 puff 2 times daily. Active albuterol 108 (90 Base) MCG/ACT inhaler Inhale 1 puff every 4 (four) hours if needed for wheezing. 09/22/19 24 Active levothyroxine (Synthroid, Levoxyl) 75 MCG tabletIndication s:Acute cough Take 1 tablet (75 mcg) by mouth Once per day. 90 tablet 3 08/10/19 25 Active magnesium 30 MG tabletIndication s:Cramps of left lower extremity Take 1 tablet (30 mg) by mouth 2 times daily. 60 tablet 11 08/18/19 25 026 Active Diclofenac Sodium (Voltaren Arthritis Pain) 1 % gelIndications:C ramps of left lower extremity To use up to 4 times a day to the affected area. 100 g 1 08/18/19 25 Active DULoxetine (Cymbalta) [address] capsule Take 1 capsule (30 mg) by mouth Once per day. Do not crush or chew. 30 capsule 11 10/01/19 25 026 Active rosuvastatin (Crestor) 10 MG tablet Take 1 tablet (10 mg) by mouth Once per day. 30 tablet 11 11/02/19 25 Active omeprazole (PriLOSEC) [address] capsule TAKE 1 TABLET(20 MG) BY MOUTH DAILY 90 capsule 1 01/05/20 25 Active cholecalciferol (Vitamin D-3) 50 MCG (1999 UT) tabletIndication s:Vitamin D deficiency Take 2,000 Units by mouth Once per day. 90 tablet 3 02/24/20 25 Active hydroCHLOROthiaz amador 12.5 MG tabletIndication s:Primary hypertension Take 1 tablet (12.5 mg) by mouth Once per day. 30 tablet 11 02/24/20 026 Active lisinopril (Zestril) 30 MG tabletIndication s:Primary hypertension Take 1 tablet (30 mg) by mouth Once per day. 30 tablet 11 02/24/20 25 026 Active cholecalciferol (Vitamin D-3) 50 MCG (1999 UT) tablet Take 1 tablet by mouth Once per day. 05/12/19 25 025 Discontinued(Re order (will not trigger notification to Pharmacy)) colchicine 0.6 MG tablet Take 0.6 mg by mouth 2 times daily. 12/27/19 24 025 Discontinued(Me d list cleanup (will not trigger notification to Pharmacy)) lisinopril 40 MG tablet Take 1 tablet (40 mg) by mouth Once per day. 90 tablet 1 10/01/19 25 025 Discontinued(Th erapy completed) hydroCHLOROthiaz amador (HYDRODiuril) 25 MG tablet Take 1 tablet (25 mg) by mouth Once per day. 90 tablet 3 10/01/19 25 025 Discontinued( erapy completed) Active Problems Problem Noted Date Diagnosed Date Vitamin D deficiency 02/23/2025 Intrinsic eczema 02/01/2025 Assessment & Plan (02/01/2025 3:15 PM EDT): Initially was treated as seborrheic dermatitis with ketoconazole, lesions not improving, will refer to dermatology for evaluation Memory loss 11/21/2024 Assessment & Plan (02/21/2025 9:45 PM EDT): Pending neurology evalaution, she still has the same symptoms, no acute mental changes, er precautions reviewed Assessment & Plan (11/21/2024 1:01 PM EDT): Will refer to neurology for dementia evaluation Hyperlipidemia, mixed 10/01/2024 Assessment & Plan (02/01/2025 3:05 PM EDT): On rosuvastatin will order new labs for guidance of therapy Assessment & Plan (10/01/2024 2:28 PM EDT): Will start on atorvastatin, risk vs benefits discussed Fibromyalgia 10/01/2024 Assessment & Plan (10/01/2024 2:30 PM EDT): Will start on cymbalta, follow up in 1 month, risk vs benefits discussed Primary hypertension 07/02/2024 Assessment & Plan (02/01/2025 3:11 PM EDT): Controlled, keep low sodium diet and exercise as tolerated, keep blood pressure log, target <140/90, follow up in 3 monhs Assessment & Plan (10/01/2024 3:48 PM EDT): Elevated and asymptomatic, will leave on current therapy, but will reevaluate in 1 month, keep low sodium diet and exercise as tolerated Assessment & Plan (10/01/2024 2:28 PM EDT): Uncontrolled, on lisinopril 40mg, will add hydrochlorothiazide, will follow up in 1 month, keep bp log, target <140/90 Assessment & Plan (07/02/2024 8:19 AM EST): On lisinopril, told to keep a bp log, keep low sodium diet, follow up in 1 month Acquired hypothyroidism 07/02/2024 Assessment & Plan (10/01/2024 3:49 PM EDT): Clinically euthyroid, will order new labs follow up in 1 month Assessment & Plan (07/02/2024 8:20 AM EST): On levothyroxine, will follow up in office for examination and chemical analysis Encounter for medical examination to establish c are 06/29/2024 Assessment & Plan (07/02/2024 8:18 AM EST): Last pcp visit April 2024 at [facility] ER: May 2023 due to pneumonia, Hospitalization: May due to pneumonia Pmhx: OA, HTN, Hypothyroidism, vitamin d def, vitamin b12 def, cholesterol, gerd Pshx: tonsillectomy 1974, lumbar spine surgery 2005 All: seafood Meds: as above Encounters Date Type Department Care Team Description 03/21/2025 Travel 03/18/2025 Telephone [facility] MED & PEDS [address] [place] [address] Mayito Fleming MD Medication Question 02/28/2025 Telephone [facility] MED [facility] PEDS [address] [place] [address] Mayito Fleming MD Call Back Request 02/23/2025 2:15 PM EDT Office Visit [facility] [address] [place] [address] Claudy Packer MD Other chest pain (Primary Dx); Memory loss; Vitamin D deficiency; Primary hypertension; Normocytic anemia 02/23/2025 Travel 02/23/2025 Orders Only [facility] MED & PEDS [address] [place] [address] Elie Spain MD 02/21/2025 Telephone [facility] MED & PEDS [address] [place] [address] Mayito Fleming MD Nurse Triage 02/16/2025 Telephone [facility] MEDICINE [address] [place] [phone] Mayito Fleming MD ER Follow-up 02/01/2025 2:15 PM EDT Office Visit [facility]ED[facility] [address] [place] [address] Mayito Fleming MD Hyperlipidemia, mixed (Primary Dx); Primary hypertension; Fibromyalgia; Intrinsic eczema 02/01/2025 Travel 01/07/2025 Telephone [facility] MEDICINE [address] [place] [phone] Rommel Hicks MD [facility] - New Patient Assistance 01/02/2025 Refill [facility] MED & PEDS [address] [place], [place] [phone] Mayito Fleming MD 12/30/2024 Orders Only [facility] [address] [place] [address] Elie Spain MD 12/28/2024 2:45 PM EDT Telemedicine [facility] MED & PEDS [address] [place] [address] Mayito Fleming MD Memory loss (Primary Dx); Dietary counseling; Exercise counseling 12/28/2024 Telephone [facility] MED [facility] PEDS [address] [place] [address] Mayito Fleming MD 12/28/2024 Travel 12/27/2024 Telephone [facility] MED [facility] PEDS [address] [place] [address] Mayito Fleming MD chart prep from Last 3 Months Immunizations Immunization Administration Dates Next Due Influenza Quadrivalent Adjuvanted 02/25/2023 Influenza, High Dose Seasona l, Preservative Free 02/15/2021,04/14/2017 Influenza, IIV3, injectable 03/04/2014, 3,04/04/2012 Influenza, trivalent, adjuvanted 02/27/2024,10/0 11/2020,04/14/2017 Pfizer Covid-19 Vaccine 12+ 03/11/2021 Pneumococcal Conjugate PCV 13 02/24/2015 Pneumococcal Polysaccharide PPSV23 11/14/2009 Tdap 2007 Zoster, Recombinant 02/25/2023 Zoster, live 03/14/2015,02/15/2013 Family History Medical History Relation Name Comments [...] Sign Reading Time Taken Comments Blood Pressure 122/80 02/23/2025 3:56 PM EDT Pulse 76 02/23/2025 2:26 PM EDT Temperature 36.3 C (97.4 F) 02/01/2025 2:12 PM EDT Respiratory Rate 20 02/23/2025 2:26 PM EDT Oxygen Saturation 94% 02/23/2025 2:26 PM EDT Inhaled Oxygen Concentration - - Weight 73.5 kg (162 lb) 02/23/2025 2:26 PM EDT Height 154.9 cm (5' 1 ) 02/23/2025 2:26 PM EDT Body Mass Index 30.61 02/23/2025 2:26 PM EDT Plan of Treatment Upcoming Encounters Date Type Department Care Team (Late st Contact Info) Description 03/24/2025 10:30 AM EST Telemedicine [facility] MED & PEDS [address] [place], [place] [phone] Mayito Fleming MD [address] [place], [place] [phone] Health Maintenance Due Date Last Done Comments DTaP/Tdap/Td Vaccines (2 - Td or Tdap) 09/09/2017 2007 RSV Patients and Patients Aged 60 years or older (1 - 1-dose 75+ series) 09/09/2018 Zoster Vaccines (3 of 3) 04/22/2023 023, 03/14/2015, 02/15/2013 COVID-19 Vaccine ( season) 2025 03/28/2022, 03/11/2021, 02/21/2021, Additional history exists Influenza Vaccine (#1) 2025 4, 02/25/2023, 02/15/2021, Additional history exists Alcohol/Substance Use Screening 06/29/2025 06/29/2024 Depression Screening 06/29/2025 06/29/2024, 06/29/19 25 SDOH Screening 06/29/2025 06/29/2024 Tobacco Screening 02/23/2026 02/23/2025 Lipid Panel 09/03/2029 09/03/2024 Pneumococcal Vaccine: 50+ Years Completed 02/24/2015, 11/14/2009 [...] Name Priority Date/Time Associated Diagnosis Comments BD DEXA AXIAL Routine 02/22/2025 10:19 AM EDT THYROID PANEL WITH TSH Routine 12/21/2024 10:56 AM EDT LIPID PANEL, STANDARD Routine 09/03/2024 9:35 AM EDT Primary hypertension from Last 3 Months or Most Recently Relevant to Health Maintenance Results * BD DEXA Axial (02/22/2025 10:19 AM EDT) Anatomical Region Laterality Modality Body Radiographic Erlinda ging us Historical Provider IMG DXA PROCEDURES Final Result * Thyroid Panel with TSH (12/21/2024 10:56 AM EDT) Blood us Historical Provider LAB BLOOD ORDERABLES Gayle l Result * (ABNORMAL) Lipid Panel, Standard (09/03/2024 9:35 AM EDT) Triglycerides 212(H) <150 mg/dL [facility] Comment:Desirable Triglyceri de: less than 150 mg/dLBorderline High Triglyceride 150-199 mg/dLHigh Triglyceride: 200-499 mg/dLVery High Triglyceride: greater than or equal to 5OO mg/dL Cholesterol 264(H) <200 mg/dL [facility] Comment:Desirable Cholestero l: less than 200 mg/dLBorderline High Cholesterol: 200-239 mg/dLHigh Cholesterol: greater than 239 mg/dL LDL Cholesterol Calculated 176(H) <100 mg/dL [facility] Comment:Desirable LDL: less than 100 mg/dLNear Optimal/Above Optimal LDL: 110- 129 mg/dLBorderline High LDL: 130-159 mg/dLHigh LDL: 160-189 mg/dLVery High LDL: greater than or equal to 190 mg/dL HDL Cholesterol 46 >40 mg/dL [facility] Comment:Desirable HDL: great er than 40 mg/dL Note: This HDL assay may give artificially low results in patients with liver disease. Blood Venous blood specimen / Unknown 09/03/2024 9:35 AM EDT 09/03/2024 2:08 PM EDT Mayito Charles MD LAB BLOOD ORDERABL ES Final Result [facility] [address] [place] [address] [phone] from Last 3 Months or Most Recently Relevant to Health Maintenance Insurance [place] [address] [place] [id number] [facility] MEDICARE SUPPLEMENT Care Teams Flower Buncher Or Picker Relationship Specialty Start Date End Date Mayito Fleming MD [address] [place] [phone] PCP - General Internal Medicine 01/11/25
--- OUTSIDE RECORDS SUMMARY | 2025-03-21 10:58 | XMS_ITS | Encounter Summary ---
Author Organization [employer] Address 75 [facility] [address] [place] [address] Care Team Providers Care Tag Writer Name Role Phone Mayito Fleming MD Primary Care Prov ider Mayito Fleming MD Primary Care Prov ider Reason for Visit * Reason Onset Date Comments Results 09/13/2024 Encounter Details Date Type Department Care Team ([facility] st Contact Info) Description 09/13/2024 Telephone [facility] [address] [place] [address] Mayito Fleming MD [address] [place], [place] [phone] Results Social History Tobacco Use Types Packs/Day Years [...] encounter Miscellaneous Notes * Telephone Encounter - Arpan Moore - 09/13/2024 1:31 PM EDT TC from pt requesting call back regarding Results. Type of results: Labs and urine culture Date when done: 09/03/24 Facility: [facility] / results on chart documented in this encounter Plan of Treatment Upcoming Encounters Date Type Department Care Team (Late st Contact Info) Description 03/24/2025 10:30 AM EST Telemedicine [facility] MED & PEDS [address] [place] [address] Mayito Fleming MD [address] [place] [address] documented as of this encounter Visit Diagnoses Not on filedocumented in this encounter Additional Health Concerns Assessment Noted Time PHQ-9 Depression Total Score: 0 06/29/19 1:48 PM EST documented as of this encounter Care Teams Tag Writer Relationship Specialty Start Date End Date Mayito Fleming MD [address] [place] [address] PCP - General Internal Medicine 06/29/24 01/04/25 Mayito Fleming MD [address] [place] [id number] PCP - General Internal Medicine 01/11/25 documented as of this encounter
--- OUTSIDE RECORDS SUMMARY | 2025-03-21 10:58 | XMS_ITS | Encounter Summary ---
Author Organization [employer] Address 75 [facility] 7 [place] [address] Care Team Providers Care Mechanic/Welder Name Role Phone Mayito Fleming MD Primary Care Prov ider Mayito Fleming MD Primary Care Prov ider Reason for Visit * Reason Onset Date Comments Results 2024 Encounter Details Date Type Department Care Team ([facility] st Contact Info) Description 2024 Telephone [facility] MEDICINE [address] [place] [address] Mayito Fleming MD [address] [place] [address] Results Social History Tobacco Use Types Packs/Day [...] encounter Miscellaneous Notes * Telephone Encounter - Digna Pratt - 2024 3:38 PM EDT TC from pt daughter requesting call back regarding Results. Type of results: Lab Date when done: 09/03 Facility: [facility] [phone] documented in this encounter Plan of Treatment Upcoming Encounters Date Type Department Care Team ([facility] st Contact Info) Description 03/24/2025 10:30 AM EST Telemedicine [facility] MED & PEDS [address] [place] [address] Mayito Fleming MD [address] [place] [address] documented as of this encounter Visit Diagnoses Not on filedocumented in this encounter Additional Health Concerns Assessment Noted Time PHQ-9 Depression Total Score: 0 06/29/19 1:48 PM EST documented as of this encounter Care Teams Mechanic/Welder Relationship Specialty Start Date End Date Mayito Fleming MD [address] [place] [address] PCP - General Internal Medicine 06/29/24 01/04/25 Mayito Fleming MD [address] [place] [address] PCP - General Internal Medicine 01/11/25 documented as of this encounter
--- OUTSIDE RECORDS SUMMARY | 2025-03-21 10:58 | XMS_ITS | Encounter Summary ---
Author Organization [employer] Address 75 [facility] [address] [place] [address] Care Team Providers Care Communication Skills Instructor Name Role Phone Mayito Fleming MD Primary Care Prov ider Mayito Fleming MD Primary Care Prov ider Reason for Visit * Reason Onset Date Comments Nurse Triage 09/15/2024 Encounter Details Date Type Department Care Team ([facility] Contact Info) Description 09/15/2024 Telephone [facility] MED & PEDS [address] [place], [place] [phone] Mayito Fleming MD [address] [place] [address] Nurse Triage Social History Tobacco Use Types [...] Telephone Encounter - Marge Hicks RN - 09/15/2024 12:29 PM EDT Triage call with [facility] [place] [id number] Pt reports 3 days of abdominal pain located above umbilicus. Pt reports it is more constant and uncomfortable. Last BM 3 days ago large normal stool. Neg for fever, vomiting , diarrhea. Pt takes famotidine daily without good effect. Pt would like to see provider. No available apts in [facility] today. Pt is advised to come to [facility] today open till 8pm. Pt agrees with this disposition and insurance is verified as active . Protocol Used: Abdominal Pain - Upper (Adult) Protocol-Based Disposition: See in Office or Video Visit Today Video visit not offered Positive Triage Question: * Patient wants to be seen * All higher-acuity triage questions were negative Care Advice Discussed: * Reassurance and Education - Stomach Pain * Antacid Medicine * Drink Clear Fluids * Reasons To Call Back - Severe pain present over 1 hour - Constant pain present over 2 hours - Moderate pains come and go for more than 24 hours - Mild pains come and go for more than 72 hours - You become worse * Telephone Encounter - Araseli Escobedo - 09/15/2024 11:58 AM EDT Symptom: Abdominal Pain - Female - Not Outcome: Schedule an urgent appointment (within 4 hours) or talk to a nurse or provider soon Reason: Started within the past 3 days The caller accepted this outcome. Contact pt at [phone] documented in this encounter Plan of Treatment Upcoming Encounters Date Type Department Care Team ([facility] st Contact Info) Description 03/24/2025 10:30 AM EST Telemedicine [facility] MED & PEDS [address] [place] [address] Mayito Fleming MD [address] [place] [address] documented as of this encounter Visit Diagnoses Not on filedocumented in this encounter Additional Health Concerns Assessment Noted Time PHQ-9 Depression Total Score: 0 06/29/19 1:48 PM EST documented as of this encounter Care Teams Communication Skills Instructor Relationship Specialty Start Date End Date Mayiot Fleming MD [address] [place] [address] PCP - General Internal Medicine 06/29/24 01/04/25 Mayito Fleming MD [address] [place] [address] PCP - General Internal Medicine 01/11/25 documented as of this encounter
--- OUTSIDE RECORDS SUMMARY | 2025-03-21 10:58 | XMS_ITS | Encounter Summary ---
Author Organization [employer] Address 75 [facility] 7t [place] [address] Care Team Providers Care Wound Treatment Rn Name Role Phone Mayito Fleming MD Primary Care Prov ider Encounter Details Date Type Department Care Team ([facility] st Contact Info) Description 02/23/2025 Orders Only [facility] MED & PEDS [address] [place], [place] [phone] ProviderElie MD Social History Tobacco Use Types Packs/Day Years [...] Upcoming Encounters Date Type Department Care Team ([facility] st Contact Info) Description 03/24/2025 10:30 AM EST Telemedicine [facility] MED & PEDS [address] [place], [place] [phone] Mayito Fleming MD [address] [place] [address] documented as of this encounter Procedures Procedure Name Priority Date/Time Associated Diagnosis Comments BD DEXA AXIAL Routine 02/22/2025 10:19 AM EDT documented in this encounter Results * BD DEXA Axial (02/22/2025 10:19 AM EDT) Anatomical Region Laterality Modality Body Radiographic Erlinda ging Historical Provider MD GONZALEZ DXA PROCEDURES Final Result documented in this encounter Visit Diagnoses Not on filedocumented in this encounter Additional Health Concerns Assessment Noted Time PHQ-9 Depression Total Score: 0 06/29/19 25 1:48 PM EST documented as of this encounter Care Teams Wound Treatment Rn Relationship Specialty Start Date End Date Mayito Fleming MD [address] [place] [address] PCP - General Internal Medicine 01/11/25 documented as of this encounter
--- OUTSIDE RECORDS SUMMARY | 2025-03-21 10:58 | XMS_ITS | Encounter Summary ---
Author Organization [employer] Address 75 [facility] [address] [place] [address] Care Team Providers Care Dog Handler Or Trainer Name Role Phone Mayito Fleming MD Primary Care Prov ider Reason for Visit * Reason Onset Date Comments Medication Question 03/18/2025 Encounter Details Date Type Department Care Team ([facility] st Contact Info) Description 03/18/2025 Telephone [facility] MED & PEDS [address] [place], [place] [phone] Mayito Fleming MD [address] [place] [address] Medication Question Social History Tobacco Use Types [...] encounter Miscellaneous Notes * Telephone Encounter - Sofiya Anne - 03/18/2025 3:39 PM EST Tc from pt requesting a call back to discuss medication Contact pt at [phone] documented in this encounter Plan of Treatment Upcoming Encounters Date Type Department Care Team (Late st Contact Info) Description 03/24/2025 10:30 AM EST Telemedicine [facility] MED & PEDS [address] [place] [address] Mayito Fleming MD [address] [place] [address] documented as of this encounter Visit Diagnoses Not on filedocumented in this encounter Additional Health Concerns Assessment Noted Time PHQ-9 Depression Total Score: 0 06/29/19 1:48 PM EST documented as of this encounter Care Teams Dog Handler Or Trainer Relationship Specialty Start Date End Date Mayito Fleming MD [address] [place] [address] PCP - General Internal Medicine 01/11/25 documented as of this encounter
--- OUTSIDE RECORDS SUMMARY | 2025-03-21 10:58 | XMS_ITS | Encounter Summary ---
Author Organization [employer] Address 75 [facility] 7[address] [place] [address] Care Team Providers Care Cloth Tearer Name Role Phone Mayito Fleming MD Primary Care Prov ider Encounter Details Date Type Department Care Team (Latest Contact Info) Description 03/21/2025 Travel Social History Tobacco Use Types Packs/Day [...] your housing situation today? I have izabel cmcoy 06/29/[address] you li [...] Info) Description 03/24/2025 10:30 AM EST Telemedicine [facility] MED & PEDS [address] [place] [address] Mayito Fleming MD [address] [place] [address] documented as of this encounter Visit Diagnoses Not on filedocumented in this encounter Additional Health Concerns Assessment Noted Time PHQ-9 Depression Total Score: 0 06/29/19 1:48 PM EST documented as of this encounter Care Teams Cloth Tearer Relationship Specialty Start Date End Date Mayito Fleming MD [address] [place] [address] PCP - General Internal Medicine 01/11/25 documented as of this encounter
--- OUTSIDE RECORDS SUMMARY | 2025-03-21 10:58 | XMS_ITS | Encounter Summary ---
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 Name Role Phone Mayito Fleming MD Primary Care Prov ider Mayito Fleming MD Primary Care Prov ider Reason for Visit * Reason Onset Date Comments Medication Question 06/29/2024 Encounter Details Date Type Department Care Team ([facility] Contact Info) Description 06/29/2024 Telephone [facility] [address] [place], [place] [phone] Mayito Fleming MD [address] [place] [address] Medication Question Social History Tobacco Use Types [...] AM EST documented as of this encounter Functional Status * Over the past 2 weeks, how often have you been bothered by any of the following problems? Question Answer Date of Assessment Author Patient Health Questionnaire-2 Score 0 06/12 1:48 PM Clari Ordoñez MA * Little interest or pleasure in doing things Answer Date of Assessment Author Not at all 06/29/2024 1:48 PM Sandra Ordoñez MA * Feeling down, depressed, or hopeless Answer Date of Assessment Author Not at all 06/29/2024 1:48 PM Sandra Ordoñez MA * Trouble falling or staying asleep, or sleeping too much Answer Date of Assessment Author Not at all 06/29/2024 1:48 PM Sandra Ordoñez MA * Feeling tired or having little energy Answer Date of Assessment Author Not at all 06/29/2024 1:48 PM Sandra Ordoñez MA * Poor appetite or overeating Answer Date of Assessment Author Not at all 06/29/2024 1:48 PM Sandra Ordoñez MA * Feeling bad about yourself - or that you are a failure or have let yourself or your family down Answer Date of Assessment Author Not at all 06/29/2024 1:48 PM Sandra Ordoñez MA * Trouble concentrating on things, such as reading the newspaper or watching television Answer Date of Assessment Author Not at all 06/29/2024 1:48 PM EST Sandra Wilcox MA * Moving or speaking so slowly that other people could have noticed? Or the opposite - being so fidgety or restless that you have been moving around a lot more than usual. Answer Date of Assessment Author Not at all 06/29/2024 1:48 PM EST Sandra Wilcox MA * Thoughts that you would be better off or hurting yourself in some way Answer Date of Assessment Author Not at all 06/29/2024 1:48 PM EST Sandra Wilcox MA * Patient Health Questionnaire-9 Score Answer Date of Assessment Author 0 06/29/2024 1:48 PM EST Sandra Wilcox MA documented as of this encounter Miscellaneous Notes * Telephone Encounter - Genny Cortes RN - 07/02/2024 11:51 AM EST Spoke with Paige at [facility] pharmacy to review coverage of medication listed below with pt insurance. Paige notified RN that medication was filled yesterday at [facility]. * Telephone Encounter - Araseli Escobedo - 06/29/2024 4:03 PM EST Bo Hansen at [facility] pharmacy calling to inform provider script for venlafaxine XR (Effexor XR) 37.5 MG 24 hr tablet is not covered by pt insurance. documented in this encounter Plan of Treatment Upcoming Encounters Date Type Department Care Team (Late st Contact Info) Description 03/24/2025 10:30 AM EST [facility] [address] [place] [address] Mayito Fleming MD [address] [place] [address] documented as of this encounter Visit Diagnoses Not on filedocumented in this encounter Additional Health Concerns Assessment Noted Time PHQ-9 Depression Total Score: 0 06/29/19 25 1:48 PM EST documented as of this encounter Care Teams Hot Plate Press Operator Relationship Specialty Start Date End Date Mayito Fleming MD [address] [place] [address] PCP - General Internal Medicine 06/29/24 01/04/25 Mayito Fleming MD [address] [place] [address] PCP - General Internal Medicine 01/11/25 documented as of this encounter
--- OUTSIDE RECORDS SUMMARY | 2025-03-21 10:58 | XMS_ITS ---
Author Name [facility] Organization Unknown Care Team Organization Name Specialty Phone Email Start Date End Da te [facility] 12/29/2024 [facility] Christa Huizar Primary Care 04/23/2023 024 [facility] NATALY Grajeda Primary Care 09/16/202212/10 [facility] David Blanco Primary Care 03/19/20222023
[2025-03-21 14:22] LABS: MANUAL DIFF FLAG NO
[2025-03-21 14:29] LABS: Hematocrit 38.5 % (37.0-47.0); Hemoglobin 12.4 g/dl (12.0-16.0); Imm Gran Abs Auto 0.01 X10*3/uL (0.00-0.03); Imm Gran Pct Auto 0.2 % (0.0-0.4); Lymphocytes Absolute Auto 1.4 X10*3/uL (1.2-4.9); Mean Corpuscular HGB Conc 32.2 g/dl (31.0-35.0); Mean Corpuscular Hemoglobin 31.2 pg (27.0-33.0); Mean Corpuscular Volume 96.7 fL (80.0-98.0); NRBC Abs Auto 0.000 X10*3/uL (0.0-0.012); NRBC Pct Auto 0.0 /100WBC (0.0-0.2); Platelet Count 213 X10*3/uL (160-400); Red Blood Count 3.98 X10*6/uL (4.20-5.50); Reticulocytes Absolute 0.070 X10*6/uL (0.026-0.095); White Blood Count 4.9 X10*3/uL (4.8-10.8)
[2025-03-21 15:03] LABS: Alanine Aminotransferase 20 U/L (0-31); Albumin Level 4.1 g/dL (3.5-5.0); Alkaline Phosphatase 85 U/L (39-117); Anion Gap 12 (12-20); Aspartate Amino Transferase 33 U/L (5-31); Blood Urea Nitrogen 18 mg/dL (9-16); Calcium 9.4 mg/dL (8.4-10.2); Carbon Dioxide 29 mmol/L (22-29); Chloride 105 mmol/L (96-108); Cholesterol 166 mg/dL (<200); Estimated Glomerular Filt Rate > 60; HDL Cholesterol 45 mg/dL (>40); Iron 59 mcg/dL (30-160); Percent Iron Saturation 26 % (15-50); Potassium 3.9 mmol/L (3.3-5.1); Sodium 142 mmol/L (135-145); Total Iron Binding Capacity 224 mcg/dL (228-428); Total Protein 6.7 g/dL (6.5-8.0); Triglycerides 145 mg/dL (<150); Unsaturated Iron Binding 165 ug/dL
[2025-03-21 17:07] LABS: Ferritin 79 ng/mL (10-250); Folate 9.8 ng/mL (> or = 4.0); Vitamin B12 518 pg/mL (200-900)
== END 2025-03-21 09:39 | disposition home or self-care (01) ==
LOC: HO.CHCLDS 09:38
PROVIDERS: Internal Medicine; PCP Internal Medicine; Visit Provider Internal Medicine
DX: E78.2 Mixed hyperlipidemia (principal); R41.3 Other amnesia; R07.89 Other chest pain; D64.9 Anemia, unspecified; E55.9 Vitamin D deficiency, unspecified
CPT/HCPCS: 36415; 80053; 80061; 82306; 82607; 82728; 82746; 83540; 85025; 85045